=== PATIENT | male | born 1940 ===

== ENCOUNTER 2025-06-09 06:16 | Outpatient (REF) | payer MEDICARE, SELFPAY ==
[2025-06-09 06:09] LABS: MANUAL DIFF FLAG NO
[2025-06-09 06:20] LABS: Hematocrit 40.0 % (42.0-52.0); Hemoglobin 13.6 g/dl (14.0-18.0); Imm Gran Abs Auto 0.04 X10*3/uL (0.00-0.03); Imm Gran Pct Auto 0.6 % (0.0-0.4); Lymphocytes Absolute Auto 1.5 X10*3/uL (1.2-4.9); Mean Corpuscular HGB Conc 34.0 g/dl (31.0-36.0); Mean Corpuscular Hemoglobin 30.0 pg (27.0-33.0); Mean Corpuscular Volume 88.3 fL (80.0-98.0); NRBC Abs Auto 0.000 X10*3/uL (0.0-0.012); NRBC Pct Auto 0.0 /100WBC (0.0-0.2); Platelet Count 197 X10*3/uL (160-400); Red Blood Count 4.53 X10*6/uL (4.60-5.80); White Blood Count 6.3 X10*3/uL (4.8-10.8)
--- OUTSIDE RECORDS SUMMARY | 2025-06-09 06:22 | XMS_ITS | Encounter Summary ---
Author Organization [facility] Address [address] [facility] [address] [place] [address] Phone Care Team Providers Care Kiln Operator Helper Name Role Phone Cristian Garcia MD Primary Care Provider [phone] Cristian Garcia MD Unavailable [phone] Stephen Evans MD Unavailable [phone] Dawn Denise [facility] Primary Care Provider Brittney Covarrubias MD Primary Care Provider [phone] Encounter Details Date Type Department Care Team (Late st Contact Info) Description 07/28/2017 Ancillary [facility] [address] [place] [address] Stephen Evans MD [address] [place] [address] Social History Tobacco Use Types Packs/Day Years Used Date Smoking Tobacco: Never Assessed Sex and Gender Information Value Date Recorded Sex Assigned at Not on file Legal Sex Male 10:13 PM EDT Gender Identity Not on file Sexual Orientation Not on file documented as of this encounter Plan of Treatment Not on file documented as of this encounter Visit Diagnoses Not on filedocumented in this encounter Care Teams Kiln Operator Helper Relationship Specialty Start Date End Date Cristian Garcia MD [address] [place] [address] [email or web address] PCP - General 07/26/17 07/04/20 Dawn Denise CNP [address] [place] [address] [email or web address] PCP - General Family Medicine 07/05/20 12/03/24 Brittney Covarrubias MD [address] [place] [address] [email or web address] PCP - General Family Medicine 12/04/24 Cristian Garcia MD [address] [place] [address] [email or web address] Historical LMR Provider 07/26/17 2 Stephen Evans MD [address] [place] [address] Historical LMR Provider 07/26/17 documented as of this encounter Additional Source Comments The information contained in this document represents components of the legal health record. It is not the complete legal health record.[facility]
--- OUTSIDE RECORDS SUMMARY | 2025-06-09 06:22 | XMS_ITS | Encounter Summary ---
Author Organization [facility] Address [address] [facility] [address] [place] [address] Phone Care Team Providers Care Command Post Craftsman Name Role Phone Cristian Garcia MD Unavailable [phone] Stephen Evans MD Unavailable [phone] Dawn Denise CNP Primary Care Provider Brittney Covarrubias MD Primary Care Provider + [phone] Encounter Details Date Type Department Care Team (Late st Contact Info) Description 03/16/2021 Procedure Pass [facility] [address] [place] [address] Social History Tobacco Use Types Packs/Day Years Used Date Smoking Tobacco: Former Smokeless Tobacco: Never Comments:quit 33 years ago Alcohol Use Standard Drinks/Week Comments Never 0 (1 standard drink = 0.6 oz pur e alcohol) Sex and Gender Information Value Date Recorded Sex Assigned at Not on file Legal Sex Male 10:13 PM EDT Gender Identity Not on file Sexual Orientation Not on file documented as of this encounter Plan of Treatment Not on file documented as of this encounter Visit Diagnoses Not on filedocumented in this encounter Care Teams Command Post Craftsman Relationship Specialty Start Date End Date Dawn Denise CNP [address] [place] [address] PCP - General Family Medicine 07/05/20 12/03/24 Brittney Covarrubias MD [address] [place] [address] [email or web address] PCP - General Family Medicine 12/04/24 Cristian Garcia MD [address] [place] [address] [email or web address] Historical LMR Provider 07/26/17 2 Stephen Evans MD [address] [place] [address] Historical LMR Provider 07/26/17 documented as of this encounter Additional Source Comments The information contained in this document represents components of the legal health record. It is not the complete legal health record.[facility]
--- OUTSIDE RECORDS SUMMARY | 2025-06-09 06:22 | XMS_ITS | Encounter Summary ---
Author Organization [facility] Address [address] [facility] [facility] [address] [place] [address] Phone Care Team Providers Care International Trade Analyst Name Role Phone Cristian Garcia MD Primary Care Provider [phone] Cristian Garcia MD Unavailable [phone] Stephen Evans MD Unavailable [phone] Dawn Denise [facility] Primary Care Provider Brittney Covarrubias MD Primary Care Provider [phone] Reason for Referral * Physical Therapy (Routine) - Closed Specialty Diagnoses / Procedures Referred By Ivanna doty Referred To Contact Physical Therapy Diagnoses Encounter for rehabilitation Balance & Back Pain Procedures Evalute & Treat Cristian Garcia MD Phone: tel: fax: [email or web address] [address] [place] [address] Phone: tel: Referral ID Status Reason Start Date Expiration Date Visits Re quested Visits Authorized [id number] Closed 01/14/2018 10/07/2018 99 99 Encounter Details Date Type Department Care Team (Latest Contact Info) Description 01/14/2018 Transcribe Orders [facility] [address] [place] [address] Cristian Garcia MD [address] [place] [address] [email or web address] Encounter for rehabilitation (Primary Dx) Social History Tobacco Use Types Packs/Day Years Used Date Smoking Tobacco: Never Assessed Sex and Gender Information Value Date Recorded Sex Assigned at Not on file Legal Sex Male 10:13 PM EDT Gender Identity Not on file Sexual Orientation Not on file documented as of this encounter Plan of Treatment Not on file documented as of this encounter Procedures Procedure Name Priority Date/Time Associated Diagnosis Comments AMB REFERRAL TO [facility] PHYSICAL THERAPY Routine 01/15/2018 3:14 PM EDT Encounter for rehabilitation documented in this encounter Results * Ambulatory referral to [facility] Physical Therapy (01/15/2018 3:14 PM EDT) Cristian Garcia MD AMB [facility] REFERRALS Final Result documented in this encounter Visit Diagnoses Diagnosis Encounter for rehabilitation- Primary documented in this encounter Care Teams International Trade Analyst Relationship Specialty Start Date End Date Cristian Garcia MD [address] [place] [address] [email or web address] PCP - General 07/26/17 07/04/20 Dawn Denise CNP [address] [place] [phone] PCP - General Family Medicine 07/05/20 12/03/24 Brittney Covarrubias MD [address] [place] [address] PCP - General Family Medicine 12/04/24 Cristian Garcia MD [address] [place] [address] [email or web address] Historical LMR Provider 07/26/17 2 Stephen Evans MD [address] [place] [address] Historical LMR Provider 07/26/17 documented as of this encounter Additional Source Comments The information contained in this document represents components of the legal health record. It is not the complete legal health record.[facility]
--- OUTSIDE RECORDS SUMMARY | 2025-06-09 06:22 | XMS_ITS | Encounter Summary ---
Author Organization [facility] Address [address] [place] [address] Phone Care Team Providers Care Hat Body Sorter Name Role Phone Cristian Garcia MD Primary Care Provider Cristian Garcia MD Unavailable [phone] Stephen Evans MD Unavailable [phone] Dawn Denise [facility] Primary Care Provider Brittney Covarrubias MD Primary Care Provider [phone] Encounter Details Date Type Department Care Team (Latest Contact Info) Description 07/28/2017 Ancillary [facility] [address] [place] [address] [address] Floor, [address] [place], [place] [phone] Stephen Evans MD [address] [place], [place] [phone] Diagnosis unknown Social History Tobacco Use Types Packs/Day Years Used Date Smoking Tobacco: Never Assessed Sex and Gender Information Value Date Recorded Sex Assigned at Not on file Legal Sex Male 10:13 PM EDT Gender Identity Not on file Sexual Orientation Not on file documented as of this encounter Plan of Treatment Not on file documented as of this encounter Visit Diagnoses Diagnosis Diagnosis unknown documented in this encounter Care Teams Hat Body Sorter Relationship Specialty Start Date End Date Cristian Garcia MD [address] [place] [address] [email or web address] PCP - General 07/26/17 07/04/20 Dawn Denise CNP [address] [place] [address] [email or web address] PCP - General Family Medicine 07/05/20 12/03/24 Brittney Covarrubias MD [address] [place] [address] [email or web address] PCP - General Family Medicine 12/04/24 Cristian Garcia MD [address] [place] [address] [email or web address] Historical LMR Provider 07/26/17 2 Stephen Evans MD [facility] [place] [address] Historical LMR Provider 07/26/17 documented as of this encounter Additional Source Comments The information contained in this document represents components of the legal health record. It is not the complete legal health record.[facility]
--- OUTSIDE RECORDS SUMMARY | 2025-06-09 06:22 | XMS_ITS | Encounter Summary ---
Author Organization [facility] Address [address] [address] [place] [address] Phone Care Team Providers Care Editorial Writer Name Role Phone Cristian Garcia MD Primary Care Provider [phone] Cristian Garcia MD Unavailable [phone] Stephen Evans MD Unavailable [phone] Dawn Denise [facility] Primary Care Provider Brittney Covarrubias MD Primary Care Provider [phone] Reason for Referral * Physical Therapy (Routine) - Closed Specialty Diagnoses / Procedures Referred By Ivanna doty Referred To Contact Physical Therapy Diagnoses Encounter for rehabilitation Radiculopathy Lumbar Region Procedures Treat System, Provider Not In, [facility] [address] [address] Phone: tel: Referral ID Status Reason Start Date Expiration Date Visits Re quested Visits Authorized [id number] Closed 08/06/2017 10/07/2017 99 99 Encounter Details Date Type Department Care Team (Latest Contact Info) Description 08/17/2017 Transcribe Orders [facility] [address] [place] [address] System, Provider Not In, [facility] [address] [address] Encounter for rehabilitation (Primary Dx) Social History Tobacco Use Types Packs/Day Years Used Date Smoking Tobacco: Never Assessed Sex and Gender Information Value Date Recorded Sex Assigned at Not on file Legal Sex Male 10:13 PM EDT Gender Identity Not on file Sexual Orientation Not on file documented as of this encounter Plan of Treatment Scheduled Referrals Name Type Priority Associated Diagnoses Orde r Schedule Ambulatory referral to [facility] Physical Therapy Outpatient Referral Routine Encounter for rehabilitation Ordered: 08/17/2017 documented as of this encounter Visit Diagnoses Diagnosis Encounter for rehabilitation- Primary documented in this encounter Care Teams Editorial Writer Relationship Specialty Start Date End Date Cristian Garcia MD [address] [place] [address] [email or web address] PCP - General 07/26/17 07/04/20 Dawn Denise CNP [address] [place] [address] PCP - General Family Medicine 07/05/20 12/03/24 Brittney Covarrubias MD [address] [place] [address] PCP - General Family Medicine 12/04/24 Cristian Garcia MD [address] [place] [address] [email or web address] Historical LMR Provider 07/26/17 2 Stephen Evans MD [address] [place] [address] Historical LMR Provider 07/26/17 documented as of this encounter Additional Source Comments The information contained in this document represents components of the legal health record. It is not the complete legal health record.[facility]
--- OUTSIDE RECORDS SUMMARY | 2025-06-09 06:22 | XMS_ITS | Encounter Summary ---
Author Organization [facility] Address [address] [place] [address] Phone Care Team Providers Care Oracle Programmer Analyst Name Role Phone Cristian Garcia MD Primary Care Provider [phone] Cristian Garcia MD Unavailable [phone] Stephen Evans MD Unavailable [phone] Dawn Denise [facility] Primary Care Provider Brittney Covarrubias MD Primary Care Provider + [phone] Encounter Details Date Type Department Care Team (Latest Contact Info) Description 02/05/2018 Ancillary Orders [facility] [address] [place] [address] [address], [address] [place] [address] Stephen Evans MD [address] [place] [address] Aortic valve stenosis, etiology of cardiac valve disease unspecified Social History Tobacco Use Types Packs/Day Years Used Date Smoking Tobacco: Never Assessed Sex and Gender Information Value Date Recorded Sex Assigned at Not on file Legal Sex Male 10:13 PM EDT Gender Identity Not on file Sexual Orientation Not on file documented as of this encounter Plan of Treatment Not on file documented as of this encounter Results * TTE COMPREHENSIVE (02/08/2018 8:52 AM EDT) Anatomical Region Laterality Modality Heart Ultrasound us Stephen Evans MD CV ECHO ORDERABLES Final R esult documented in this encounter Visit Diagnoses Diagnosis Aortic valve stenosis, etiology of cardiac valve disease unspecified documented in this encounter Care Teams Oracle Programmer Analyst Relationship Specialty Start Date End Date Cristian Garcia MD [address] [place] [address] [email or web address] PCP - General 07/26/17 07/04/20 Dawn Denise CNP [address] [place] [address] PCP - General Family Medicine 07/05/20 12/03/24 Brittney Covarrubias MD [address] [place] [address] PCP - General Family Medicine 12/04/24 Cristian Garcia MD [address] [place] [address] [email or web address] Historical LMR Provider 07/26/17 Stephen Redmond MD [address] [place] [address] Historical LMR Provider 07/26/17 documented as of this encounter Additional Source Comments The information contained in this document represents components of the legal health record. It is not the complete legal health record.[facility]
--- OUTSIDE RECORDS SUMMARY | 2025-06-09 06:22 | XMS_ITS | Encounter Summary ---
Author Organization [facility] Address [address] [facility] [address] [place] [address] Phone Care Team Providers Care Casting Machine Operator Helper Name Role Phone Cristian Garcia MD Primary Care Provider [phone] Cristian Garcia MD Unavailable [phone] Stephen Evans MD Unavailable [phone] Dawn Denise [facility] Primary Care Provider Brittney Covarrubias MD Primary Care Provider [phone] Reason for Referral * Physical Therapy (Elective) - Closed Specialty Diagnoses / Procedures Referred By Ivanna doty Referred To Contact Physical Therapy Diagnoses Encounter for rehabilitation Balance & Back Pain Procedures Evaluate & Treat Cristian Garcia MD Phone: tel: fax: mailto:[email or web address] [address] [place] [address] Phone: tel: Referral ID Status Reason Start Date Expiration Date Visits Re quested Visits Authorized [id number] Closed 07/26/2018 10/07/2018 88 88 Encounter Details Date Type Department Care Team (Latest Contact Info) Description 07/26/2018 Transcribe Orders [facility] [address] [place] [address] [phone] Cristian Garcia MD [address] [place] [address] [email or web address] Encounter for rehabilitation (Primary Dx) Social History [...] Date/Time Associated Diagnosis Comments AMB REFERRAL TO [facility] PHYSICAL THERAPY Routine 08/06/2018 10:48 AM EDT Encounter for rehabilitation documented in this encounter Results * Ambulatory referral to [facility] Physical Therapy (08/06/2018 10:48 AM EDT) Cristian Garcia MD AMB [facility] REFERRALS Final Result documented in this encounter Visit Diagnoses Diagnosis Encounter for rehabilitation- Primary documented in this encounter Care Teams Casting Machine Operator Helper Relationship Specialty Start Date End Date Cristian Garcia MD [address] [place] [address] [email or web address] PCP - General 07/26/17 07/04/20 Dawn Denise CNP [address] [place] [address] [email or web address] PCP - General Family Medicine 07/05/20 12/03/24 Brittney Covarrubias MD [address] [place] [address] [email or web address] PCP - General Family Medicine 12/04/24 Cristian Garcia MD [address] [place] [address] [email or web address] Historical LMR Provider 07/26/17 2 Stephen Evans MD [address] [place] [address] Historical LMR Provider 07/26/17 documented as of this encounter Additional Source Comments The information contained in this document represents components of the legal health record. It is not the complete legal health record.[facility]
--- OUTSIDE RECORDS SUMMARY | 2025-06-09 06:22 | XMS_ITS | Clinical Summary ---
Author Organization [facility] Address [address] [place] [address] Phone Care Team Providers Care Tow Motor Mechanic Name Role Phone Brittney Covarrubias MD Primary Care Provider [phone] Allergies No known active allergies Medications aspirin 81 MG EC tablet Take 1 tablet by mouth daily. 12/08/2024 Active tamsulosin (FLOMAX) 0.4 mg Cp24 Take 0.8 mg by mouth daily. AM instead of PM per dtr as of 12/12/24 12/08/2024 Active finasteride (PROSCAR) 5 mg tablet Take 1 tablet by mouth daily. 12/08/2024 Active atorvastatin (LIPITOR) 40 MG tablet Take 40 mg by mouth nightly at bedtime. 12/08/2024 Active lisinopril (PRINIVIL,ZESTR IL) 5 MG tablet Take 5 mg by mouth daily. 12/08/2024 Active LORazepam (ATIVAN) 0.5 MG tablet Take 0.25 mg by mouth nightly at bedtime as needed for anxiety. 12/08/2024 Active LORazepam (ATIVAN) 0.5 MG tablet Take 0.5 mg by mouth 2 (two) times a day as needed for anxiety. 12/08/2024 Active melatonin 5 mg Tab Take 10 mg by mouth nightly at bedtime. 12/08/2024 Active theanine 200 mg Take 200 mg by mouth daily. 12/08/2024 Active acetaminophen (TYLENOL EXTRA STRENGTH) 500 MG tablet Take 1,000 mg by mouth nightly at bedtime. 12/08/2024 Active Active Problems Problem Noted Date Diagnosed Date Type 2 diabetes mellitus, wi thout long-term current use of insulin 09/11/2018 SSS (sick sinus syndrome) 02/16/2018 Overview (08/21/2018): Assessment & Plan (02/16/2018 4:43 PM EDT): - Appears to be asymptomatic, but does report some occasional dizziness that resolves quickly upon standing. - EKG today showing sinus rhythm. - No role for pacemaker at this time. -He will report symptoms. He will follow-up with Dr. Rodriguez in 6 months Nonrheumatic aortic valve stenosis 02/16/2018 Overview (08/21/2018): Sinus rhythm with extra systolic beats LV size normal Overall LV systolic function normal with EF 55-60% Diastolic filling pattern normal Sigmoid shaped septum with focal hypertrophy of the basal septum. The remaining wall thickness is mildly increased. Aortic valve moderately calcified Moderate to severe aortic stenosis present Maximum velocity across aortic valve is 3.9 M/ ps Trace mitral regurgitation Compared with the findings of the repair report of 02/22/17 there is a slight increase in velocity across the aortic valve but no significant change. Assessment & Plan (02/16/2018 4:45 PM EDT): - Progressive, latest echo showing moderate to severe aortic stenosis - He appears to be asymptomatic but does report occasional dizziness upon standing that resolves quickly. He will report any worsening symptoms. No chest pain, no significant decrease in his activity tolerance. - Discussed progressive nature of this issue and he is aware that may need a valve replacement in the future. - He will have a repeat echocardiogram in 6 months time. - He will follow-up with Dr. Bernardo in 6 months after echocardiogram is completed Mixed hyperlipidemia 02/16/2018 Assessment & Plan (02/16/2018 4:46 PM EDT): - Continues on pravastatin - Encouraged increased activity as tolerated, however he has been having issues after his back surgery last year. He continues with elevated BMI. - Updated lab results have not been received from [facility], therefore will attempt to obtain. - Due to his diabetes, LDL goal less than 70. Essential hypertension 02/16/2018 Assessment & Plan (02/16/2018 4:48 PM EDT): - Controlled during today's visit - He is currently on lisinopril HCTZ combination pill as prescribed by his PCP - Recently renal labs not available for review at the time of this visit, we will attempt to obtain - Goal BP less than 140/90 for diabetics - He will continue to follow with his PCP and with Dr. Rodriguez Morbid obesity with BMI of 40.0-44.9, adult 02/05 Assessment & Plan (02/16/2018 4:50 PM EDT): - BMI greater than 40 - Exercise is somewhat limited due to recent back surgery and subsequent sequelae with balance issues - He continues to try to increase activity as tolerated Social History Tobacco Use Types Packs/Day Years Used Date Smoking Tobacco: Former Smokeless Tobacco: Never Comments:quit 33 years ago Alcohol Use Standard Drinks/Week Comments Never 0 (1 standard drink = 0.6 oz pur e alcohol) Home Health Assessment: Transportation Answer Date Recorded Lack of Transportation (Medical) No 01/21/2025 Lack of Transportation (Non-Medical) No 01/21/2025 Patient Unable or Declines to Respond No 01/21/2025 Education Answer Date Recorded Are you interested in more education? Not on mirian e 02/01/2023 Are you concerned about learning? Not on file 02/01/2023 No 02/01/2023 No 02/01/2023 Digital Access Answer Date Recorded No 03/03/2023 No 03/03/2023 No 03/03/2023 Reliable internet access at home? Not on file 03/03/2023 Device with a working camera? Not on file Sex and Gender Information Value Date Recorded Sex Assigned at Not on file Legal Sex Male 10:13 PM EDT Gender Identity Not on file Sexual Orientation Not on file Last Filed Vital Signs Vital Sign Reading Time Taken Comments Blood Pressure 110/68 01/21/2025 2:37 PM EDT Pulse 51 01/21/2025 2:37 PM EDT Temperature 36.3 C (97.3 F) 03/16/2021 6:40 AM EDT Respiratory Rate 18 12/12/2024 2:58 PM EST Oxygen Saturation 96% 01/21/2025 2:37 PM EDT Inhaled Oxygen Concentration - - Weight 134.7 kg (297 lb) 12/08/2024 11:41 AM EST Height 188 cm (6' 2 ) 12/08/2024 11:41 AM EST Body Mass Index 38.13 12/08/2024 11:41 AM EST Plan of Treatment Health Maintenance Due Date Last Done Comments Adult Td,Tdap Booster 1940 HEMOGLOBIN A1C 1939 DEPRESSION SCREENING 1951 PNEUMOCOCCAL VACCINES (50+ years) (1 of 2 - PCV) 1958 RSV VACCINE (1 - 1-dose 75+ series) 2014 DIABETIC EYE EXAM 09/11/2018 ZOSTER VACCINES (2 of 2) 12/09/2020 10/14/2020 INFLUENZA VACCINE (#1) 2025 COVID-19 VACCINE (3 - 2024-2 6 season) 2025 12/09/2020, 11/07/2020 BLOOD PRESSURE 07/23/2025 01/21/2025 CREATININE LEVEL 12/02/2025 12/02/2024, 11/26/2024, 11/19/2024 POTASSIUM LEVEL 12/02/2025 12/02/2024, 11/26/2024, 11/19/2024 HEPATITIS A VACCINES Aged Out No long er eligible based on patient's age to complete this topic HIB VACCINES Aged Out No longer eligi ble based on patient's age to complete this topic MENINGOCOCCAL VACCINES (ACWY) Aged Out No longer eligible based on patient's age to complete this topic MENINGOCOCCAL VACCINES (B) Aged Out N o longer eligible based on patient's age to complete this topic Medical Devices Not on file Procedures Procedure Name Priority Date/Time Associated Diagnosis Comments COMPREHENSIVE METABOLIC PANEL Routine 12/02/2024 9:10 AM EST Acute renal failure, unspecified acute renal failure type Other specified diabetes mellitus with other specified complication, unspecified whether regional intermodal truck driver insulin use Essential hypertension, malignant from Last 3 Months or Most Recently Relevant to Health Maintenance Results * (ABNORMAL) Comprehensive metabolic panel (12/02/2024 9:10 AM EST) SODIUM 140 133 - 146 mmol/L [facility] POTASSIUM 4.5 3.3 - 5.1 mmol/L [facility] CHLORIDE 103 96 - 108 mmol/L [facility] CO2 26 21 - 35 mmol/L [facility] BUN 22(H) 6 - 19 mg/dL [facility] CREATININE 1.00 0.5 - 1.5 mg/dL [facility] GLUCOSE 127(H) 70 - 99 mg/dL [facility] ALBUMIN 3.5(L) 3.9 - 4.8 g/dL [facility] TOTAL PROTEIN 6.0(L) 6.5 - 8.0 g/dL [facility] CALCIUM 9.2 8.4 - 10.3 mg/dL [facility] ALKALINE PHOSPHATASE 95 39 - 117 U/L [facility] TOTAL BILIRUBIN 0.6 0.0 - 1.2 mg/dL [facility] AST 14 0 - 37 U/L [facility] ALT 10 0 - 40 U/L [facility] GLOBULIN 2.5 1 - 4.8 g/dL [facility] EGFR 74 >59 mL/min/1.7 3m2 [facility] Comment:Estimated glomerular filtration rate calculated using the CKD-EPI refit equation. ANION GAP 16 10 - 20 mmol/L [facility] 12/02/2024 9:10 AM EST 12/02/2024 9:24 AM EST us Oral Miguel MD LAB BLOOD ORDERABLES Final Resul t [address] [id number] from Last 3 Months or Most Recently Relevant to Health Maintenance Insurance MEDICARE PART A & B MEDICARE HMO REPLACEMENT MEDICARE PART A & B MEDICARE HMO REPLACEMENT MEDICARE PART A & B MEDICARE PART A & B MEDICARE PART A & B [place] MEDIC[place] HMO REPLACEMENT MEDICARE PART A & B MEDICARE PART A & B [place] MEDICARE HMO REPLACEMENT MEDICARE PART A & B MEDICARE HMO REPLACEMENT Member Subscriber Plan / Payer (Ef fective 2024-) Name:Augustus Nur Relation to Subscriber:Self Name:Augustus Nur Payer ID:Not on file Type:Medicare Address: [place] [id number] MEDICARE PART A & B MEDICARE HMO REPLACEMENT Advance Directives For more information, please contact: [phone] (9AM - 5PM [facility], Sunday-Sunday) * Full Code (Latest Code Status on File) Date Activated Date Inactivated Comments 03/16/2021 6:18 AM Question Answer Comments Code Status Confirmed With: Other (specify below ) Code Discussion Comments: Transcribed from order Care Teams Tow Motor Mechanic Relationship Specialty Start Date End Date Brittney Covarrubias MD [address] [place] [phone] [email or web address] PCP - General Family Medicine 12/04/24 Additional Source Comments The information contained in this document represents components of the legal health record. It is not the complete legal health record.[facility]
--- OUTSIDE RECORDS SUMMARY | 2025-06-09 06:22 | XMS_ITS | Encounter Summary ---
Author Organization [facility] Address [address] [facility] [address] [place] [address] Phone Care Team Providers Care Sueding Machine Tender Name Role Phone Cristian Garcia MD Primary Care Provider [phone] Cristian Garcia MD Unavailable [phone] Stephen Evans MD Unavailable [phone] Dawn Denise [facility] Primary Care Provider Brittney Covarrubias MD Primary Care Provider [phone] Reason for Referral * Physical Therapy (Routine) - Closed Specialty Diagnoses / Procedures Referred By Ivanna doty Referred To Contact Physical Therapy Diagnoses Encounter for rehabilitation Unsteady Gait Procedures Evaluate & Treat Mark Brandt MD Phone: tel: fax: [email or web address] [facility] [address] [place] [address] Phone: tel: Referral ID Status Reason Start Date Expiration Date Visits Re quested Visits Authorized [id number] Closed 03/21/2019 10/07/2019 99 99 Encounter Details Date Type Department Care Team (Latest Contact Info) Description 03/17/2019 Transcribe Orders [facility] Rehabilitation Services [address] [place] [address] Mark Brandt MD [address] [place] [phone] [email or web address] Encounter for rehabilitation (Primary Dx) Social History [...] Date/Time Associated Diagnosis Comments AMB REFERRAL TO [facility] PHYSICAL THERAPY Routine 03/21/2019 1:11 PM EDT Encounter for rehabilitation documented in this encounter Results * Ambulatory referral to [facility] Physical Therapy (03/21/2019 1:11 PM EDT) us Mark Brandt MD AMB [facility] REFERRALS Final Resul t documented in this encounter Visit Diagnoses Diagnosis Encounter for rehabilitation- Primary documented in this encounter Care Teams Sueding Machine Tender Relationship Specialty Start Date End Date Cristian Garcia MD [address] [place] [address] [email or web address] PCP - General 07/26/17 07/04/20 Dwan Denise CNP [address] [place] [address] [email or web address] PCP - General Family Medicine 07/05/20 12/03/24 Brittney Covarrubias MD [address] [place] [address] [email or web address] PCP - General Family Medicine 12/04/24 Cristian Garcia MD [address] [place] [address] [email or web address] Historical LMR Provider 07/26/17 2 Stephen Evans MD [address] [place] [address] Historical LMR Provider 07/26/17 documented as of this encounter Additional Source Comments The information contained in this document represents components of the legal health record. It is not the complete legal health record.[facility]
[2025-06-09 06:50] LABS: Anion Gap 14 (12-20); Blood Urea Nitrogen 14 mg/dL (9-16); Calcium 9.0 mg/dL (8.4-10.2); Carbon Dioxide 25 mmol/L (22-29); Chloride 104 mmol/L (96-108); Estimated Glomerular Filt Rate > 60; Potassium 3.8 mmol/L (3.3-5.1); Sodium 139 mmol/L (135-145)
== END 2025-06-09 06:17 | disposition home or self-care (01) ==
LOC: HO.MMNH1L 06:16
PROVIDERS: Visit Provider Physician Assistant Medical
DX: I10 Essential (primary) hypertension (principal); N39.0 Urinary tract infection, site not specified; E78.5 Hyperlipidemia, unspecified
CPT/HCPCS: 36415; 80048; 85025

== ENCOUNTER 2025-06-11 06:24 | Outpatient (REF) | payer MEDICARE, SELFPAY ==
[2025-06-11 06:28] LABS: MANUAL DIFF FLAG NO
--- OUTSIDE RECORDS SUMMARY | 2025-06-11 06:28 | XMS_ITS | Encounter Summary ---
Author Organization [facility] Address [address] [employer] [facility] [address] [place] [address] Phone Care Team Providers Care Anvilsmith Name Role Phone Cristian Garcia MD Unavailable [phone] Stephen Evans MD Unavailable [phone] Dawn Denise CNP Primary Care Provider Brittney Covarrubias MD Primary Care Provider + [phone] Encounter Details Date Type Department Care Team (Late st Contact Info) Description 03/16/2021 Procedure Pass [facility] Cardiovascular And Interventional Radiology [address] [place] [address] Social History Tobacco Use Types Packs/Day Years [...] on filedocumented in this encounter Care Teams Anvilsmith Relationship Specialty Start Date End Date Dawn Denise CNP [address] [place] [address] PCP - General Family Medicine 07/05/20 12/03/24 Brittney Covarrubias MD [address] [place] [address] [email or web address] PCP - General Family Medicine 12/04/24 Cristian Garcia MD [address] [place] [address] [email or web address] Historical LMR Provider 07/26/17 2 Stephen Evans MD [address] [place] [address] Historical LMR Provider 07/26/17 documented as of this encounter Additional Source Comments The information contained in this document represents components of the legal health record. It is not the complete legal health record.[facility]
--- OUTSIDE RECORDS SUMMARY | 2025-06-11 06:29 | XMS_ITS | Encounter Summary ---
Author Organization [facility] Address [address] [facility] [address] [place] [address] Phone Care Team Providers Care Quality Management Nurse Name Role Phone Cristian Garcia MD Primary Care Provider [phone] Cristian Garcia MD Unavailable [phone] Stephen Evans MD Unavailable [phone] Dawn Denise [facility] Primary Care Provider Brittney Covarrubias MD Primary Care Provider [phone] Reason for Referral * Physical Therapy (Routine) - Closed Specialty Diagnoses / Procedures Referred By Ivanna doty Referred To Contact Physical Therapy Diagnoses Encounter for rehabilitation Radiculopathy Lumbar Region Procedures Treat System, Provider Not In, [facility] [address] [address] Phone: tel: Referral ID Status Reason Start Date Expiration Date Visits Re quested Visits Authorized [id number] Closed 08/06/2017 10/07/2017 99 99 Encounter Details Date Type Department Care Team (Latest Contact Info) Description 08/17/2017 Transcribe Orders [facility] Rehabilitation Services [address] [place] [address] System, Provider Not In, [facility] [employer] [address] [address] Encounter for rehabilitation (Primary Dx) Social History [...] Diagnoses Orde r Schedule Ambulatory referral to [facility] Physical Therapy Outpatient Referral Routine Encounter for rehabilitation Ordered: 08/17/2017 documented as of this encounter Visit Diagnoses Diagnosis Encounter for rehabilitation- Primary documented in this encounter Care Teams Quality Management Nurse Relationship Specialty Start Date End Date Cristian Garcia MD [address] [place] [address] [email or web address] PCP - General 07/26/17 07/04/20 Dawn Denise CNP [address] [place] [phone] PCP - General Family Medicine 07/05/20 12/03/24 Brittney Covarrubias MD [address] [place] [address] PCP - General Family Medicine 12/04/24 Cristian Garcia MD [address] [place] [address] [email or web address] Historical LMR Provider 07/26/17 2 Stephen Evans MD [address] [place] [address] Historical LMR Provider 07/26/17 documented as of this encounter Additional Source Comments The information contained in this document represents components of the legal health record. It is not the complete legal health record.[facility]
--- OUTSIDE RECORDS SUMMARY | 2025-06-11 06:29 | XMS_ITS | Encounter Summary ---
Author Organization [facility] Address [email or web address] [facility] [address] [place] [address] Phone Care Team Providers Care Pediatric Hospitalist Name Role Phone Cristian Garcia MD Primary Care Provider [phone] Cristian Garcia MD Unavailable [phone] Stephen Evans MD Unavailable [phone] Dawn Denise [facility] Primary Care Provider Brittney Covarrubias MD Primary Care Provider [phone] Reason for Referral * Physical Therapy (Routine) - Closed Specialty Diagnoses / Procedures Referred By Ivanna doty Referred To Contact Physical Therapy Diagnoses Encounter for rehabilitation Balance & Back Pain Procedures Evalute & Treat Cristian Garcia MD Phone: tel: fax: mailto:[email or web address] [facility] [address] [place] [address] Phone: tel: Referral ID Status Reason Start Date Expiration Date Visits Re quested Visits Authorized [id number] Closed 01/14/2018 10/07/2018 99 99 Encounter Details Date Type Department Care Team (Latest Contact Info) Description 01/14/2018 Transcribe Orders [facility] Rehabilitation Services [address] [place] [address] Cristian Garcia MD [address] [place] [phone] [email or web address] Encounter for rehabilitation (Primary Dx) Social History [...] Date/Time Associated Diagnosis Comments AMB REFERRAL TO [facility] PHYSICAL THERAPY Routine 01/15/2018 3:14 PM EDT Encounter for rehabilitation documented in this encounter Results * Ambulatory referral to [facility] Physical Therapy (01/15/2018 3:14 PM EDT) Cristian Garcia MD AMB [facility] REFERRALS Final Result documented in this encounter Visit Diagnoses Diagnosis Encounter for rehabilitation- Primary documented in this encounter Care Teams Pediatric Hospitalist Relationship Specialty Start Date End Date Cristian Garcia MD [address] [place] [phone] [email or web address] PCP - General 07/26/17 07/04/20 Dawn Denise CNP [address] [place] [address] PCP - General Family Medicine 07/05/20 12/03/24 Brittney Covarrubias MD [address] [place] [phone] PCP - General Family Medicine 12/04/24 Cristian Garcia MD [address] [place] [phone] [email or web address] Historical LMR Provider 07/26/17 2 Stephen Evans MD [address] [place] [address] Historical LMR Provider 07/26/17 documented as of this encounter Additional Source Comments The information contained in this document represents components of the legal health record. It is not the complete legal health record.[facility]
--- OUTSIDE RECORDS SUMMARY | 2025-06-11 06:29 | XMS_ITS | Encounter Summary ---
Author Organization [facility] Address [address] [facility] [address] [place] [address] Phone Care Team Providers Care Administrative Library Assistant Name Role Phone Cristian Garcia MD Primary Care Provider [phone] Cristian Garcia MD Unavailable [phone] Stephen Evans MD Unavailable [phone] Dawn Denise [facility] Primary Care Provider Brittney Covarrubias MD Primary Care Provider [phone] Reason for Referral * Physical Therapy (Elective) - Closed Specialty Diagnoses / Procedures Referred By Ivanna doty Referred To Contact Physical Therapy Diagnoses Encounter for rehabilitation Balance & Back Pain Procedures Evaluate & Treat Cristian Garcia MD Phone: tel: fax: mailto:[email or web address] [address] [place] [address] Phone: tel: Referral ID Status Reason Start Date Expiration Date Visits Re quested Visits Authorized [id number] Closed 07/26/2018 10/07/2018 88 88 Encounter Details Date Type Department Care Team (Latest Contact Info) Description 07/26/2018 Transcribe Orders [facility] Rehabilitation Services [address] [place] [address] [phone] Cristian Garcia MD [address] [place] [phone] [email or web address] Encounter for rehabilitation (Primary Dx) Social History [...] Date/Time Associated Diagnosis Comments AMB REFERRAL TO [facility] PHYSICAL THERAPY Routine 08/06/2018 10:48 AM EDT Encounter for rehabilitation documented in this encounter Results * Ambulatory referral to [facility] Physical Therapy (08/06/2018 10:48 AM EDT) Cristian Garcia MD AMB [facility] REFERR[facility] Final Result documented in this encounter Visit Diagnoses Diagnosis Encounter for rehabilitation- Primary documented in this encounter Care Teams Administrative Library Assistant Relationship Specialty Start Date End Date Cristian Garcia MD [address] [place] [phone] [email or web address] PCP - General 07/26/17 07/04/20 Dawn Denise CNP [address] [place] [address] PCP - General Family Medicine 07/05/20 12/03/24 Brittney Covarrubias MD [address] [place] [address] PCP - General Family Medicine 12/04/24 Cristian Garcia MD [address] [place] [address] [email or web address] Historical LMR Provider 07/26/17 2 Stephen Evans MD [address] [place] [address] Historical LMR Provider 07/26/17 documented as of this encounter Additional Source Comments The information contained in this document represents components of the legal health record. It is not the complete legal health record.[facility]
--- OUTSIDE RECORDS SUMMARY | 2025-06-11 06:29 | XMS_ITS | Encounter Summary ---
Author Organization [facility] Address [address] [employer] [facility] [address] [place] [address] Phone Care Team Providers Care Living Nurse Name Role Phone Cristian Garcia MD Primary Care Provider [phone] Cristian Garcia MD Unavailable [phone] Stephen Evans MD Unavailable [phone] Dawn Denise [facility] Primary Care Provider Brittney Covarrubias MD Primary Care Provider [phone] Reason for Referral * Physical Therapy (Routine) - Closed Specialty Diagnoses / Procedures Referred By Ivanna doty Referred To Contact Physical Therapy Diagnoses Encounter for rehabilitation Unsteady Gait Procedures Evaluate & Treat Mark Brandt MD Phone: tel: fax: [email or web address] [facility] [address] [place] [address] Phone: tel: Referral ID Status Reason Start Date Expiration Date Visits Re quested Visits Authorized [id number] Closed 03/21/2019 10/07/2019 99 99 Encounter Details Date Type Department Care Team (Latest Contact Info) Description 03/17/2019 Transcribe Orders [facility] [address] [place] [address] Mark Brandt MD [address] [place] [address] [email or web address] Encounter for rehabilitation (Primary Dx) Social [...] Date/Time Associated Diagnosis Comments AMB REFERRAL TO [facility] PHYSICAL THERAPY Routine 03/21/2019 1:11 PM EDT Encounter for rehabilitation documented in this encounter Results * Ambulatory referral to [facility] Physical Therapy (03/21/2019 1:11 PM EDT) us Mark Brandt MD AMB [facility] REFERRALS Final Resul t documented in this encounter Visit Diagnoses Diagnosis Encounter for rehabilitation- Primary documented in this encounter Care Teams Living Nurse Relationship Specialty Start Date End Date Cristian Garcia MD [address] [place] [address] [email or web address] PCP - General 07/26/17 07/04/20 Dawn Denise CNP [address] [place] [address] PCP - General Family Medicine 07/05/20 12/03/24 Brittney Covarrubias MD [address] [place] [address] PCP - General Family Medicine 12/04/24 Cristian Garcia MD [address] [place] [address] [email or web address] Historical LMR Provider 07/26/17 2 Stephen Evans MD [address] [place] [address] Historical LMR Provider 07/26/17 documented as of this encounter Additional Source Comments The information contained in this document represents components of the legal health record. It is not the complete legal health record.[facility]
--- OUTSIDE RECORDS SUMMARY | 2025-06-11 06:29 | XMS_ITS | Clinical Summary ---
Author Organization [facility] Address [address] [place] [address] Phone Care Team Providers Care Dealmaker Name Role Phone Brittney Covarrubias MD Primary Care Provider [phone] Allergies No known active allergies Medications aspirin [...] lab results have not been received from [employer] [facility], therefore will attempt to obtain. - Due [...] mellitus with other specified complication, unspecified whether middle or intermediate school principal insulin use Essential hypertension, malignant from Last 3 Months or Most Recently Relevant to Health Maintenance Results * (ABNORMAL) Comprehensive metabolic panel (12/02/2024 9:10 AM EST) SODIUM 140 133 - 146 mmol/L [facility] POTASSIUM 4.5 3.3 - 5.1 mmol/L [facility] CHLORIDE 103 96 - 108 mmol/L [facility] CO2 26 21 - 35 mmol/L [facility] BUN 22(H) 6 - 19 mg/dL [facility] CREATININE 1.00 0.5 - 1.5 mg/dL [facility] GLUCOSE 127(H) 70 - 99 mg/dL [facility] ALBUMIN 3.5(L) 3.9 - 4.8 g/dL [facility] TOTAL PROTEIN 6.0(L) 6.5 - 8.0 g/dL [facility] CALCIUM 9.2 8.4 - 10.3 mg/dL [facility] ALKALINE PHOSPHATASE 95 39 - 117 U/L [facility] TOTAL BILIRUBIN 0.6 0.0 - 1.2 mg/dL [facility] AST 14 0 - 37 U/L [facility] ALT 10 0 - 40 U/L [facility] GLOBULIN 2.5 1 - 4.8 g/dL [facility] EGFR 74 >59 mL/min/1.7 3m2 [facility] Comment:Estimated glomerular filtration rate calculated using the CKD-EPI refit equation. ANION GAP 16 10 - 20 mmol/L [facility] 12/02/2024 9:10 AM EST 12/02/2024 9:24 AM EST us Oral Miguel MD LAB BLOOD ORDERABLES Final Resul t [address] [address] from Last 3 Months or Most Recently [...] Nur Payer ID:Not on file Type:Medicare Address: [place] [id number] MEDICARE PART A & B MEDICARE HMO REPLACEMENT Advance Directives For more information, please contact: [phone] (9AM - 5PM [facility], Sunday-Sunday) * Full Code (Latest Code Status on File) Date Activated Date Inactivated Comments 03/16/2021 6:18 AM Question Answer Comments Code Status Confirmed With: Other (specify below ) Code Discussion Comments: Transcribed from order Care Teams Dealmaker Relationship Specialty Start Date End Date Brittney Covarrubias MD [address] [place] [address] [email or web address] PCP - General Family Medicine 12/04/24 Additional Source Comments The information contained in this document represents components of the legal health record. It is not the complete legal health record.[facility]
--- OUTSIDE RECORDS SUMMARY | 2025-06-11 06:29 | XMS_ITS | Encounter Summary ---
Author Organization [facility] Address [address] [place] [address] Phone Care Team Providers Care Desk Top Publisher Name Role Phone Cristian Garcia MD Primary Care Provider [phone] Cristian Garcia MD Unavailable [phone] Stephen Evans MD Unavailable [phone] Dawn Denise [facility] Primary Care Provider Brittney Covarrubias MD Primary Care Provider + [phone] Encounter Details Date Type Department Care Team (Latest Contact Info) Description 02/05/2018 Ancillary Orders [facility] [address] [place] [address] 3rd Floor, [address] [place] [address] Stephen Evans MD [address] [place] [address] Aortic valve stenosis, etiology of cardiac valve [...] unspecified documented in this encounter Care Teams Desk Top Publisher Relationship Specialty Start Date End Date Cristian Garcia MD [address] [place] [address] [email or web address] PCP - General 07/26/17 07/04/20 Dawn Denise CNP [address] [place] [address] PCP - General Family Medicine 07/05/20 12/03/24 Brittney Covarrubias MD [address] [place] [address] PCP - General Family Medicine 12/04/24 Cristian Garcia MD [address] [place] [address] [email or web address] Historical LMR Provider 07/26/17 Stephen Redmond MD [address] [place] [address] Historical LMR Provider 07/26/17 documented as of this encounter Additional Source Comments The information contained in this document represents components of the legal health record. It is not the complete legal health record.[facility]
--- OUTSIDE RECORDS SUMMARY | 2025-06-11 06:29 | XMS_ITS | Encounter Summary ---
Author Organization [facility] Address [address] [place] [address] Phone Care Team Providers Care Records Section Supervisor Name Role Phone Cristian Garcia MD Primary Care Provider Cristian Garcia MD Unavailable [phone] Stephen Evans MD Unavailable [phone] Dawn Denise [facility] Primary Care Provider Brittney Covarrubias MD Primary Care Provider [phone] Encounter Details Date Type Department Care Team (Latest Contact Info) Description 07/28/2017 [facility] [address] [place] [address] 3rd Floor, [address] [place] [address] Stephen Evans MD [address] [place], [place] [phone] Diagnosis unknown Social History Tobacco Use Types [...] unknown documented in this encounter Care Teams Records Section Supervisor Relationship Specialty Start Date End Date Cristian Garcia MD [address] [place] [address] [email or web address] PCP - General 07/26/17 07/04/20 Dawn Denise CNP [address] [place] [address] [email or web address] PCP - General Family Medicine 07/05/20 12/03/24 Brittney Covarrubias MD [address] [place] [address] [email or web address] PCP - General Family Medicine 12/04/24 Cristian Garcia MD [address] [place] [address] [email or web address] Historical LMR Provider 07/26/17 2 Stephen Evans MD [facility] [place] [address] Historical LMR Provider 07/26/17 documented as of this encounter Additional Source Comments The information contained in this document represents components of the legal health record. It is not the complete legal health record.[facility]
--- OUTSIDE RECORDS SUMMARY | 2025-06-11 06:29 | XMS_ITS | Encounter Summary ---
Author Organization [facility] Address [address] [employer] [facility] [address] [place] [address] Phone Care Team Providers Care Locum Tenens Name Role Phone Cristian Garcia MD Primary Care Provider [phone] Cristian Garcia MD Unavailable [phone] Stephen Evans MD Unavailable Dawn Denise [facility] Primary Care Provider Brittney Covarrubias MD Primary Care Provider [phone] Encounter Details Date Type Department Care Team (Late st Contact Info) Description 07/28/2017 Ancillary [facility] [address] [place] [address] Stephen Evans MD [address] [place] [address] Social History Tobacco Use Types Packs/Day Years [...] on filedocumented in this encounter Care Teams Locum Tenens Relationship Specialty Start Date End Date Cristian Garcia MD [address] [place] [address] [email or web address] PCP - General 07/26/17 07/04/20 Dawn Denise CNP [address] [place] [address] [email or web address] PCP - General Family Medicine 07/05/20 12/03/24 Brittney Covarrubias MD [address] [place] [address] [email or web address] PCP - General Family Medicine 12/04/24 Cristian Garcia MD [address] [place] [address] [email or web address] Historical LMR Provider 07/26/17 2 Stephen Evans MD [address] [place] [address] Historical LMR Provider 07/26/17 documented as of this encounter Additional Source Comments The information contained in this document represents components of the legal health record. It is not the complete legal health record.[facility]
[2025-06-11 07:01] LABS: Hematocrit 39.1 % (42.0-52.0); Hemoglobin 13.4 g/dl (14.0-18.0); Imm Gran Abs Auto 0.04 X10*3/uL (0.00-0.03); Imm Gran Pct Auto 0.6 % (0.0-0.4); Lymphocytes Absolute Auto 1.5 X10*3/uL (1.2-4.9); Mean Corpuscular HGB Conc 34.3 g/dl (31.0-36.0); Mean Corpuscular Hemoglobin 29.7 pg (27.0-33.0); Mean Corpuscular Volume 86.7 fL (80.0-98.0); NRBC Abs Auto 0.000 X10*3/uL (0.0-0.012); NRBC Pct Auto 0.0 /100WBC (0.0-0.2); Platelet Count 208 X10*3/uL (160-400); Red Blood Count 4.51 X10*6/uL (4.60-5.80); White Blood Count 6.4 X10*3/uL (4.8-10.8)
[2025-06-11 07:17] LABS: Alanine Aminotransferase 14 U/L (0-40); Albumin Level 3.8 g/dL (3.5-5.0); Alkaline Phosphatase 75 U/L (39-117); Anion Gap 12 (12-20); Aspartate Amino Transferase 22 U/L (5-37); Blood Urea Nitrogen 15 mg/dL (9-16); Calcium 9.1 mg/dL (8.4-10.2); Carbon Dioxide 29 mmol/L (22-29); Chloride 100 mmol/L (96-108); Estimated Glomerular Filt Rate > 60; Potassium 4.0 mmol/L (3.3-5.1); Sodium 137 mmol/L (135-145); Total Protein 6.2 g/dL (6.5-8.0)
[2025-06-11 07:20] LABS: Hemoglobin A1C 145.3538 umol/L; Total Hemoglobin (HGBA1C) 3433.0429 umol/L
== END 2025-06-11 06:25 | disposition home or self-care (01) ==
LOC: HO.MMNH1L 06:24
PROVIDERS: Visit Provider Student in an Organized Health Care Education/Training Program
DX: I10 Essential (primary) hypertension (principal); E11.9 Type 2 diabetes mellitus without complications; Z91.81 History of falling
CPT/HCPCS: 36415; 80053; 83036; 85025

== ENCOUNTER 2025-06-15 06:02 | Outpatient (REF) | payer MEDICARE, SELFPAY ==
[2025-06-15 05:57] LABS: MANUAL DIFF FLAG NO
--- OUTSIDE RECORDS SUMMARY | 2025-06-15 06:07 | XMS_ITS | Encounter Summary ---
Author Organization [facility] Address [address] [facility] [place] [address] [place] [address] Phone Care Team Providers Care Paver Layer Name Role Phone Cristian Garcia MD Unavailable [phone] Stephen Evans MD Unavailable [phone] Dawn Denise CNP Primary Care Provider Brittney Covarrubias MD Primary Care Provider + [phone] Encounter Details Date Type Department Care Team (Late st Contact Info) Description 03/16/2021 Procedure Pass [facility]iology [address] [place] [address] Social History Tobacco Use Types Packs/Day Years [...] on filedocumented in this encounter Care Teams Paver Layer Relationship Specialty Start Date End Date Dawn Denise CNP [address] [place] [address] PCP - General Family Medicine 07/05/20 12/03/24 Brittney Covarrubias MD [address] [place] [address] [email or web address] PCP - General Family Medicine 12/04/24 Cristian Garcia MD [address] [place] [address] [email or web address] Historical LMR Provider 07/26/17 2 Stephen Evans MD [address] [place] [address] Historical LMR Provider 07/26/17 documented as of this encounter Additional Source Comments The information contained in this document represents components of the legal health record. It is not the complete legal health record.[facility]
--- OUTSIDE RECORDS SUMMARY | 2025-06-15 06:07 | XMS_ITS | Encounter Summary ---
Author Organization [facility] Address [address] [facility] [address] [place] [address] Phone Care Team Providers Care Web Site Specialist Name Role Phone Cristian Garcia MD Primary Care Provider [phone] Cristian Garcia MD Unavailable [phone] Stephen Evans MD Unavailable [phone] Dawn Denise [facility] Primary Care Provider Brittney Covarrubias MD Primary Care Provider [phone] Reason for Referral * Physical Therapy (Routine) - Closed Specialty Diagnoses / Procedures Referred By Ivanna doty Referred To Contact Physical Therapy Diagnoses Encounter for rehabilitation Radiculopathy Lumbar Region Procedures Treat System, Provider Not In, [facility] [employer] [address] [address] Phone: tel: Referral ID Status Reason Start Date Expiration Date Visits Re quested Visits Authorized [id number] Closed 08/06/2017 10/07/2017 99 99 Encounter Details Date Type Department Care Team (Latest Contact Info) Description 08/17/2017 Transcribe Orders [facility] [address] [place] [address] System, Provider Not In, [employer] [address] [address] Encounter for rehabilitation (Primary Dx) Social History [...] Diagnoses Orde r Schedule Ambulatory referral to [facility] Physical Therapy Outpatient Referral Routine Encounter for rehabilitation Ordered: 08/17/2017 documented as of this encounter Visit Diagnoses Diagnosis Encounter for rehabilitation- Primary documented in this encounter Care Teams Web Site Specialist Relationship Specialty Start Date End Date Cristian Garcia MD [address] [place] [address] [email or web address] PCP - General 07/26/17 07/04/20 Dawn Denise CNP [address] [place] [address] PCP - General Family Medicine 07/05/20 12/03/24 Brittney Covarrubias MD [address] [place] [address] PCP - General Family Medicine 12/04/24 Cristian Garcia MD [address] [place] [address] [email or web address] Historical LMR Provider 07/26/17 2 Stephen Evans MD [address] [place] [address] Historical LMR Provider 07/26/17 documented as of this encounter Additional Source Comments The information contained in this document represents components of the legal health record. It is not the complete legal health record.[facility]
--- OUTSIDE RECORDS SUMMARY | 2025-06-15 06:07 | XMS_ITS | Encounter Summary ---
Author Organization [facility] Address [address] [place] [address] Phone Care Team Providers Care Physical Therapy Technician Name Role Phone Cristian Garcia MD Primary Care Provider [phone] Cristian Garcia MD Unavailable [phone] Stephen Evans MD Unavailable [phone] Dawn Denise [facility] Primary Care Provider Brittney Covarrubias MD Primary Care Provider + [phone] Encounter Details Date Type Department Care Team (Latest Contact Info) Description 02/05/2018 Ancillary Orders [facility] [address] [place] [address] 3rd Floor, [address] [place] [address] Stephen Evans MD [address] [place] [address] Aortic valve stenosis, etiology of cardiac valve [...] unspecified documented in this encounter Care Teams Physical Therapy Technician Relationship Specialty Start Date End Date Cristian Garcia MD [address] [place] [address] [email or web address] PCP - General 07/26/17 07/04/20 Dawn Denise CNP [address] [place] [address] PCP - General Family Medicine 07/05/20 12/03/24 Brittney Covarrubias MD [address] [place] [address] PCP - General Family Medicine 12/04/24 Cristian Garcia MD [address] [place] [address] [email or web address] Historical LMR Provider 07/26/17 Stephen Redmond MD [address] [place] [address] Historical LMR Provider 07/26/17 documented as of this encounter Additional Source Comments The information contained in this document represents components of the legal health record. It is not the complete legal health record.[facility]
--- OUTSIDE RECORDS SUMMARY | 2025-06-15 06:07 | XMS_ITS | Encounter Summary ---
Author Organization [facility] Address [address] [employer] [facility] [address] [place] [address] Phone Care Team Providers Care Dredge Or Barge Shore Hand Name Role Phone Cristian Garcia MD Primary Care Provider [phone] Cristian Garcia MD Unavailable [phone] Stephen Evans MD Unavailable [phone] Dawn Denise [facility] Primary Care Provider Brittney Covarrubias MD Primary Care Provider [phone] Reason for Referral * Physical Therapy (Routine) - Closed Specialty Diagnoses / Procedures Referred By Ivanna doty Referred To Contact Physical Therapy Diagnoses Encounter for rehabilitation Balance & Back Pain Procedures Evalute & Treat Cristian Garcia MD Phone: tel: fax: mailto:[email or web address] [address] [place] [address] Phone: tel: Referral ID Status Reason Start Date Expiration Date Visits Re quested Visits Authorized [id number] Closed 01/14/2018 10/07/2018 99 99 Encounter Details Date Type Department Care Team (Latest Contact Info) Description 01/14/2018 Transcribe Orders [facility] [address] [place] [address] Cristian Garcia MD [address] [place] [address] [email or web address] Encounter for rehabilitation (Primary Dx) Social History [...] Date/Time Associated Diagnosis Comments AMB REFERRAL TO [facility] PHYSICAL THERAPY Routine 01/15/2018 3:14 PM EDT Encounter for rehabilitation documented in this encounter Results * Ambulatory referral to [facility] Physical Therapy (01/15/2018 3:14 PM EDT) Cristian Garcia MD AMB [facility] REFERRALS Final Result documented in this encounter Visit Diagnoses Diagnosis Encounter for rehabilitation- Primary documented in this encounter Care Teams Dredge Or Barge Shore Hand Relationship Specialty Start Date End Date Cristian Garcia MD [address] [place] [address] [email or web address] PCP - General 07/26/17 07/04/20 Dawn Denise CNP [address] [place] [address] [email or web address] PCP - General Family Medicine 07/05/20 12/03/24 Brittney Covarrubias MD [address] [place] [address] [email or web address] PCP - General Family Medicine 12/04/24 Cristian Garcia MD [address] [place] [address] [email or web address] Historical LMR Provider 07/26/17 2 Stephen Evans MD [address] [place] [address] Historical LMR Provider 07/26/17 documented as of this encounter Additional Source Comments The information contained in this document represents components of the legal health record. It is not the complete legal health record.[facility]
--- OUTSIDE RECORDS SUMMARY | 2025-06-15 06:07 | XMS_ITS | Encounter Summary ---
Author Organization [facility] Address [address] [place] [address] Phone Care Team Providers Care L D Rn Name Role Phone Cristian Garcia MD Primary Care Provider Cristian Garcia MD Unavailable [phone] Stephen Evans MD Unavailable [phone] Dawn Denise [facility] Primary Care Provider Brittney Covarrubias MD Primary Care Provider [phone] Encounter Details Date Type Department Care Team (Latest Contact Info) Description 07/28/2017 Ancillary [facility] [address] [place] [address] 3rd Floor, [address] [place], [place] [phone] Stephen Evans MD [address] [place], [place] [phone] Diagnosis unknown Social History Tobacco Use Types [...] unknown documented in this encounter Care Teams L D Rn Relationship Specialty Start Date End Date Cristian Garcia MD [address] [place] [address] [email or web address] PCP - General 07/26/17 07/04/20 Dawn Denise CNP [address] [place] [address] [email or web address] PCP - General Family Medicine 07/05/20 12/03/24 Brittney Covarrubias MD [address] [place] [address] [email or web address] PCP - General Family Medicine 12/04/24 Cristian Garcia MD [address] [place] [address] [email or web address] Historical LMR Provider 07/26/17 2 Stephen Evans MD [facility] [place] [address] Historical LMR Provider 07/26/17 documented as of this encounter Additional Source Comments The information contained in this document represents components of the legal health record. It is not the complete legal health record.[facility]
--- OUTSIDE RECORDS SUMMARY | 2025-06-15 06:07 | XMS_ITS | Encounter Summary ---
Author Organization [facility] Address [address] [employer] [facility] [address] [place] [address] Phone Care Team Providers Care Machine Egg Washer Name Role Phone Cristian Garcia MD Primary Care Provider [phone] Cristian Garcia MD Unavailable [phone] Stephen Evans MD Unavailable [phone] Dawn Denise [facility] Primary Care Provider Brittney Covarrubias MD Primary Care Provider [phone] Reason for Referral * Physical Therapy (Routine) - Closed Specialty Diagnoses / Procedures Referred By Ivanna doty Referred To Contact Physical Therapy Diagnoses Encounter for rehabilitation Unsteady Gait Procedures Evaluate & Treat Mark Brandt MD Phone: tel: fax: mailto:[email or web address] [address] [place] [address] Phone: tel: Referral ID Status Reason Start Date Expiration Date Visits Re quested Visits Authorized [id number] Closed 03/21/2019 10/07/2019 99 99 Encounter Details Date Type Department Care Team (Latest Contact Info) Description 03/17/2019 Transcribe Orders [facility] [address] [place] [address] Mark Brandt MD [address] [place] [address] [email or web address] Encounter for rehabilitation (Primary Dx) Social [...] TO [facility] PHYSICAL THERAPY Routine 03/21/2019 1:11 PM EDT Encounter for rehabilitation documented in this encounter Results * Ambulatory referral to [facility] Physical Therapy (03/21/2019 1:11 PM EDT) us Mark Brandt MD AMB [facility] REFERRALS Final Resul t documented in this encounter Visit Diagnoses Diagnosis Encounter for rehabilitation- Primary documented in this encounter Care Teams Machine Egg Washer Relationship Specialty Start Date End Date Cristian Garcia MD [address] [place] [address] [email or web address] PCP - General 07/26/17 07/04/20 Dawn Denise CNP [address] [place] [address] [email or web address] PCP - General Family Medicine 07/05/20 12/03/24 Brittney Covarrubias MD [address] [place] [address] [email or web address] PCP - General Family Medicine 12/04/24 Cristian Garcia MD [address] [place] [address] [email or web address] Historical LMR Provider 07/26/17 2 Stephen Evans MD [address] [place] [address] Historical LMR Provider 07/26/17 documented as of this encounter Additional Source Comments The information contained in this document represents components of the legal health record. It is not the complete legal health record.[facility]
--- OUTSIDE RECORDS SUMMARY | 2025-06-15 06:07 | XMS_ITS | Clinical Summary ---
Author Organization [facility] Address [address] [place] [address] Phone Care Team Providers Care Golf Course Designer Name Role Phone Brittney Covarrubias MD Primary Care Provider [phone] Allergies No known active allergies Medications aspirin [...] lab results have not been received from [facility], therefore will attempt to obtain. - Due [...] mellitus with other specified complication, unspecified whether terminal press operator insulin use Essential hypertension, malignant from Last 3 Months or Most Recently Relevant to Health Maintenance Results * (ABNORMAL) Comprehensive metabolic panel (12/02/2024 9:10 AM EST) SODIUM 140 133 - 146 mmol/L [facility] POTASSIUM 4.5 3.3 - 5.1 mmol/L [facility] CHLORIDE 103 96 - 108 mmol/L [facility] CO2 26 21 - 35 mmol/L [facility] BUN 22(H) 6 - 19 mg/dL [facility] CREATININE 1.00 0.5 - 1.5 mg/dL [facility] GLUCOSE 127(H) 70 - 99 mg/dL [facility] ALBUMIN 3.5(L) 3.9 - 4.8 g/dL [facility] TOTAL PROTEIN 6.0(L) 6.5 - 8.0 g/dL [facility] CALCIUM 9.2 8.4 - 10.3 mg/dL [facility] ALKALINE PHOSPHATASE 95 39 - 117 U/L [facility] TOTAL BILIRUBIN 0.6 0.0 - 1.2 mg/dL [facility] AST 14 0 - 37 U/L [facility] ALT 10 0 - 40 U/L [facility] GLOBULIN 2.5 1 - 4.8 g/dL [facility] EGFR 74 >59 mL/min/1.7 3m2 [facility] Comment:Estimated glomerular filtration rate calculated using the CKD-EPI refit equation. ANION GAP 16 10 - 20 mmol/L [facility] 12/02/2024 9:10 AM EST 12/02/2024 9:24 AM EST us Oral Miguel MD LAB BLOOD ORDERABLES Final Resul t [address] [address] from Last 3 Months or Most Recently [...] Nur Payer ID:Not on file Type:Medicare Address: [place] [id number] MEDICARE PART A & B MEDICARE HMO REPLACEMENT Advance Directives For more information, please contact: [phone] (9AM - 5PM Vera/[facility], Sunday-Sunday) * Full Code (Latest Code Status on File) Date Activated Date Inactivated Comments 03/16/2021 6:18 AM Question Answer Comments Code Status Confirmed With: Other (specify below ) Code Discussion Comments: Transcribed from order Care Teams Golf Course Designer Relationship Specialty Start Date End Date Brittney Covarrubias MD [address] [place] [address] [email or web address] PCP - General Family Medicine 12/04/24 Additional Source Comments The information contained in this document represents components of the legal health record. It is not the complete legal health record.[facility]
--- OUTSIDE RECORDS SUMMARY | 2025-06-15 06:07 | XMS_ITS | Encounter Summary ---
Author Organization [facility] Address [address] [facility] [address] [place] [address] Phone Care Team Providers Care Hand Alterations Seamstress Name Role Phone Cristian Garcia MD Primary Care Provider [phone] Cristian Garcia MD Unavailable [phone] Stephen Evans MD Unavailable Dawn Denise [facility] Primary Care Provider Brittney Covarrubias MD Primary Care Provider [phone] Encounter Details Date Type Department Care Team (Late st Contact Info) Description 07/28/2017 Ancillary [facility] [address] [place] [address] Stephen Evans MD [address] [place] [address] Social History Tobacco Use Types Packs/Day Years [...] on filedocumented in this encounter Care Teams Hand Alterations Seamstress Relationship Specialty Start Date End Date Cristian Garcia MD [address] [place] [address] [email or web address] PCP - General 07/26/17 07/04/20 Dawn Denise CNP [address] [place] [address] [email or web address] PCP - General Family Medicine 07/05/20 12/03/24 Brittney Covarrubias MD [address] [place] [address] [email or web address] PCP - General Family Medicine 12/04/24 Cristian Garcia MD [address] [place] [address] [email or web address] Historical LMR Provider 07/26/17 2 Stephen Evans MD [address] [place] [address] Historical LMR Provider 07/26/17 documented as of this encounter Additional Source Comments The information contained in this document represents components of the legal health record. It is not the complete legal health record.[facility]
--- OUTSIDE RECORDS SUMMARY | 2025-06-15 06:07 | XMS_ITS | Encounter Summary ---
Author Organization [facility] Address [address] [facility] [address] [place] [address] Phone Care Team Providers Care Casino Gaming Inspector Name Role Phone Cristian Garcia MD Primary Care Provider [phone] Cristian Garcia MD Unavailable [phone] Stephen Evans MD Unavailable [phone] Dawn Denies [facility] Primary Care Provider Brittney Covarrubias MD Primary Care Provider [phone] Reason for Referral * Physical Therapy (Elective) - Closed Specialty Diagnoses / Procedures Referred By Ivanna doty Referred To Contact Physical Therapy Diagnoses Encounter for rehabilitation Balance & Back Pain Procedures Evaluate & Treat Cristian Garcia MD Phone: tel: fax: mailto:[email or web address] [address] [place] [address] Phone: tel: Referral ID Status Reason Start Date Expiration Date Visits Re quested Visits Authorized [id number] Closed 07/26/2018 10/07/2018 88 88 Encounter Details Date Type Department Care Team (Latest Contact Info) Description 07/26/2018 Transcribe Orders [facility] [address] [place] [address] [phone] Cristian Garcia MD [address] [place] [address] [email or web address] Encounter for rehabilitation (Primary Dx) Social History [...] Date/Time Associated Diagnosis Comments AMB REFERRAL TO [facility] PHYSICAL THERAPY Routine 08/06/2018 10:48 AM EDT Encounter for rehabilitation documented in this encounter Results * Ambulatory referral to [facility] Physical Therapy (08/06/2018 10:48 AM EDT) Cristian Garcia MD AMB [facility] REFERRALS Final Result documented in this encounter Visit Diagnoses Diagnosis Encounter for rehabilitation- Primary documented in this encounter Care Teams Casino Gaming Inspector Relationship Specialty Start Date End Date Cristian Garcia MD [address] [place] [address] [email or web address] PCP - General 07/26/17 07/04/20 Dawn Denise CNP [address] [place] [address] [email or web address] PCP - General Family Medicine 07/05/20 12/03/24 Brittney Covarrubias MD [address] [place] [address] [email or web address] PCP - General Family Medicine 12/04/24 Cristian Garcia MD [address] [place] [address] [email or web address] Historical LMR Provider 07/26/17 2 Stephen Evans MD [address] [place] [address] Historical LMR Provider 07/26/17 documented as of this encounter Additional Source Comments The information contained in this document represents components of the legal health record. It is not the complete legal health record.[facility]
[2025-06-15 06:45] LABS: Anion Gap 12 (12-20); Blood Urea Nitrogen 19 mg/dL (9-16); Calcium 8.9 mg/dL (8.4-10.2); Carbon Dioxide 27 mmol/L (22-29); Chloride 105 mmol/L (96-108); Estimated Glomerular Filt Rate > 60; Potassium 3.8 mmol/L (3.3-5.1); Sodium 140 mmol/L (135-145)
[2025-06-15 06:53] LABS: Hematocrit 39.3 % (42.0-52.0); Hemoglobin 13.1 g/dl (14.0-18.0); Imm Gran Abs Auto 0.04 X10*3/uL (0.00-0.03); Imm Gran Pct Auto 0.6 % (0.0-0.4); Lymphocytes Absolute Auto 1.4 X10*3/uL (1.2-4.9); Mean Corpuscular HGB Conc 33.3 g/dl (31.0-36.0); Mean Corpuscular Hemoglobin 29.3 pg (27.0-33.0); Mean Corpuscular Volume 87.9 fL (80.0-98.0); NRBC Abs Auto 0.000 X10*3/uL (0.0-0.012); NRBC Pct Auto 0.0 /100WBC (0.0-0.2); Platelet Count 190 X10*3/uL (160-400); Red Blood Count 4.47 X10*6/uL (4.60-5.80); White Blood Count 6.9 X10*3/uL (4.8-10.8)
== END 2025-06-15 06:03 | disposition home or self-care (01) ==
LOC: HO.MMNH1L 06:02
PROVIDERS: Visit Provider Physician Assistant Medical
DX: I10 Essential (primary) hypertension (principal); N39.0 Urinary tract infection, site not specified; E78.5 Hyperlipidemia, unspecified
CPT/HCPCS: 36415; 80048; 85025

== ENCOUNTER 2025-06-22 05:47 | Outpatient (REF) | payer MEDICARE, SELFPAY ==
[2025-06-22 05:41] LABS: MANUAL DIFF FLAG NO
--- OUTSIDE RECORDS SUMMARY | 2025-06-22 05:53 | XMS_ITS | Encounter Summary ---
Author Organization [facility] Address [address] [place] [address] Phone Care Team Providers Care Roentgenology Teacher Name Role Phone Cristian Garcia MD Primary Care Provider Cristian Garcia MD Unavailable [phone] Stephen Evans MD Unavailable [phone] Dawn Denise [facility] Primary Care Provider Brittney Covarrubias MD Primary Care Provider [phone] Encounter Details Date Type Department Care Team (Latest Contact Info) Description 07/28/2017 Ancillary [facility] [address] [place] [address] [address]rd Floor, [address] [place], [place] [phone] Stephen Evans MD [address] [place], [place] [phone] Diagnosis unknown Social History Tobacco Use Types [...] unknown documented in this encounter Care Teams Roentgenology Teacher Relationship Specialty Start Date End Date Cristian Garcia MD [address] [place] [address] [email or web address] PCP - General 07/26/17 07/04/20 Dawn Denise CNP [address] [place] [address] [email or web address] PCP - General Family Medicine 07/05/20 12/03/24 Brittney Covarrubias MD [address] [place] [address] [email or web address] PCP - General Family Medicine 12/04/24 Cristian Garcia MD [address] [place] [address] [email or web address] Historical LMR Provider 07/26/17 2 Stephen Evans MD [facility] [place] [address] Historical LMR Provider 07/26/17 documented as of this encounter Additional Source Comments The information contained in this document represents components of the legal health record. It is not the complete legal health record.[facility]
--- OUTSIDE RECORDS SUMMARY | 2025-06-22 05:53 | XMS_ITS | Encounter Summary ---
Author Organization [facility] Address [address] [place] [address] Phone Care Team Providers Care Supervisor Wound Name Role Phone Cristian Garcia MD Primary Care Provider [phone] Cristian Garcia MD Unavailable [phone] Stephen Evans MD Unavailable [phone] Dawn Denise [facility] Primary Care Provider Brittney Covarrubias MD Primary Care Provider + [phone] Encounter Details Date Type Department Care Team (Latest Contact Info) Description 02/05/2018 Ancillary Orders [facility] [address] [place] [address] [address]rd Floor, [address] [place] [address] Stephen Evans MD [address] [place] [address] Aortic valve stenosis, etiology of cardiac valve [...] unspecified documented in this encounter Care Teams Supervisor Wound Relationship Specialty Start Date End Date Cristian Garcia MD [address] [place] [address] [email or web address] PCP - General 07/26/17 07/04/20 Dawn Denise CNP [address] [place] [phone] PCP - General Family Medicine 07/05/20 12/03/24 Brittney Covarrubias MD [address] [place] [address] PCP - General Family Medicine 12/04/24 Cristian Garcia MD [address] [place] [address] [email or web address] Historical LMR Provider 07/26/17 Stephen Redmond MD [address] [place] [address] Historical LMR Provider 07/26/17 documented as of this encounter Additional Source Comments The information contained in this document represents components of the legal health record. It is not the complete legal health record.[facility]
--- OUTSIDE RECORDS SUMMARY | 2025-06-22 05:53 | XMS_ITS | Clinical Summary ---
Author Organization [facility] Address [address] [place] [address] Phone Care Team Providers Care On Air Director Name Role Phone Brittney Covarrubias MD Primary Care Provider [phone] Allergies No known active allergies Medications aspirin [...] lab results have not been received from [facility], therefore will attempt to obtain. - Due [...] mellitus with other specified complication, unspecified whether chcf insulin use Essential hypertension, malignant from Last 3 Months or Most Recently Relevant to Health Maintenance Results * (ABNORMAL) Comprehensive metabolic panel (12/02/2024 9:10 AM EST) SODIUM 140 133 - 146 mmol/L [facility] POTASSIUM 4.5 3.3 - 5.1 mmol/L [facility] CHLORIDE 103 96 - 108 mmol/L [facility] CO2 26 21 - 35 mmol/L [facility] BUN 22(H) 6 - 19 mg/dL [facility] CREATININE 1.00 0.5 - 1.5 mg/dL [facility] GLUCOSE 127(H) 70 - 99 mg/dL [facility] ALBUMIN 3.5(L) 3.9 - 4.8 g/dL [facility] TOTAL PROTEIN 6.0(L) 6.5 - 8.0 g/dL [facility] CALCIUM 9.2 8.4 - 10.3 mg/dL [facility] ALKALINE PHOSPHATASE 95 39 - 117 U/L [facility] TOTAL BILIRUBIN 0.6 0.0 - 1.2 mg/dL [facility] AST 14 0 - 37 U/L [facility] ALT 10 0 - 40 U/L [facility] GLOBULIN 2.5 1 - 4.8 g/dL [facility] EGFR 74 >59 mL/min/1.7 3m2 [facility] Comment:Estimated glomerular filtration rate calculated using the CKD-EPI refit equation. ANION GAP 16 10 - 20 mmol/L [facility] 12/02/2024 9:10 AM EST 12/02/2024 9:24 AM EST us Oral Miguel MD LAB BLOOD ORDERABLES Final Resul t [address] [address] from Last 3 Months or Most Recently [...] Nur Payer ID:Not on file Type:Medicare Address: [place] [id number] MEDICARE PART A & B MEDICARE HMO REPLACEMENT Advance Directives For more information, please contact: [phone] (9AM - 5PM Vera/[facility], Sunday-Sunday) * Full Code (Latest Code Status on File) Date Activated Date Inactivated Comments 03/16/2021 6:18 AM Question Answer Comments Code Status Confirmed With: Other (specify below ) Code Discussion Comments: Transcribed from order Care Teams On Air Director Relationship Specialty Start Date End Date Brittney Covarrubias MD [address] [place] [address] [email or web address] PCP - General Family Medicine 12/04/24 Additional Source Comments The information contained in this document represents components of the legal health record. It is not the complete legal health record.[facility]
--- OUTSIDE RECORDS SUMMARY | 2025-06-22 05:53 | XMS_ITS | Encounter Summary ---
Author Organization [facility] Address [address] [facility] [address] [place] [address] Phone Care Team Providers Care Coat Cutter Name Role Phone Cristian Garcai MD Primary Care Provider [phone] Cristian Garcia MD Unavailable [phone] Stephen Evans MD Unavailable [phone] Dawn Denise [facility] Primary Care Provider Brittney Covarrubias MD Primary Care Provider [phone] Reason for Referral * Physical Therapy (Routine) - Closed Specialty Diagnoses / Procedures Referred By Ivanna doty Referred To Contact Physical Therapy Diagnoses Encounter for rehabilitation Balance & Back Pain Procedures Evalute & Treat Cristian Garcia MD Phone: tel: fax: mailto:[email or web address] [email or web address] [address] [place] [address] Phone: tel: Referral ID Status Reason Start Date Expiration Date Visits Re quested Visits Authorized [id number] Closed 01/14/2018 10/07/2018 99 99 Encounter Details Date Type Department Care Team (Latest Contact Info) Description 01/14/2018 Transcribe Orders [facility] [address] [place] [address] Cristian Garcia MD [address] [place] [address] [email or web address] Encounter for rehabilitation (Primary Dx) Social History [...] Date/Time Associated Diagnosis Comments AMB REFERRAL TO [facility] PHYSICAL THERAPY Routine 01/15/2018 3:14 PM EDT Encounter for rehabilitation documented in this encounter Results * Ambulatory referral to [facility] Physical Therapy (01/15/2018 3:14 PM EDT) Cristian Garcia MD AMB [facility] REFERRALS Final Result documented in this encounter Visit Diagnoses Diagnosis Encounter for rehabilitation- Primary documented in this encounter Care Teams Coat Cutter Relationship Specialty Start Date End Date Cristian Garcia MD [address] [place] [address] [email or web address] PCP - General 07/26/17 07/04/20 Dawn Denise CNP [address] [place] [address] PCP - General Family Medicine 07/05/20 12/03/24 Brittney Covarrubias MD [address] [place] [address] PCP - General Family Medicine 12/04/24 Cristian Garcia MD [address] [place] [address] [email or web address] Historical LMR Provider 07/26/17 2 Stephen Evans MD [address] [place] [address] Historical LMR Provider 07/26/17 documented as of this encounter Additional Source Comments The information contained in this document represents components of the legal health record. It is not the complete legal health record.[facility]
--- OUTSIDE RECORDS SUMMARY | 2025-06-22 05:53 | XMS_ITS | Encounter Summary ---
Author Organization [facility] Address [address] [facility] [address] [place] [address] Phone Care Team Providers Care Addressograph Operator Name Role Phone Cristian Garcia MD Primary Care Provider [phone] Cristian Garcia MD Unavailable [phone] Stephen Evans MD Unavailable [phone] Dawn Denise [facility] Primary Care Provider Brittney Covarrubias MD Primary Care Provider [phone] Reason for Referral * Physical Therapy (Routine) - Closed Specialty Diagnoses / Procedures Referred By Ivanna doty Referred To Contact Physical Therapy Diagnoses Encounter for rehabilitation Unsteady Gait Procedures Evaluate & Treat Mark Brandt MD Phone: tel: fax: mailto:[email or web address] [address] [place] [address] Phone: tel: Referral ID Status Reason Start Date Expiration Date Visits Re quested Visits Authorized [id number] Closed 03/21/2019 10/07/2019 99 99 Encounter Details Date Type Department Care Team (Latest Contact Info) Description 03/17/2019 Transcribe Orders [facility] [address] [place] [address] Mark Brandt MD [address] [place] [address] [email or web address] Encounter for rehabilitation (Primary Dx) Social [...] Date/Time Associated Diagnosis Comments AMB REFERRAL TO [facility] PHYSICAL THERAPY Routine 03/21/2019 1:11 PM EDT Encounter for rehabilitation documented in this encounter Results * Ambulatory referral to [facility] Physical Therapy (03/21/2019 1:11 PM EDT) us Mark Brandt MD AMB [facility] REFERRALS Final Resul t documented in this encounter Visit Diagnoses Diagnosis Encounter for rehabilitation- Primary documented in this encounter Care Teams Addressograph Operator Relationship Specialty Start Date End Date Cristian Garcia MD [address] [place] [address] PCP - General 07/26/17 07/04/20 Dawn Denise CNP [address] [place] [address] [email or web address] PCP - General Family Medicine 07/05/20 12/03/24 Brittney Covarrubias MD [address] [place] [address] [email or web address] PCP - General Family Medicine 12/04/24 Cristian Garcia MD [address] [place] [address] Historical LMR Provider 07/26/17 2 Stephen Evans MD [address] [place] [address] Historical LMR Provider 07/26/17 documented as of this encounter Additional Source Comments The information contained in this document represents components of the legal health record. It is not the complete legal health record.[facility]
--- OUTSIDE RECORDS SUMMARY | 2025-06-22 05:53 | XMS_ITS | Encounter Summary ---
Author Organization [facility] Address [address] [facility] [address] [place] [address] Phone Care Team Providers Care Dance Historian Name Role Phone Cristian Garcia MD Primary Care Provider [phone] Cristian Garcia MD Unavailable [phone] Stephen Evans MD Unavailable [phone] Dawn Denise [facility] Primary Care Provider Brittney Covarrubias MD Primary Care Provider [phone] Reason for Referral * Physical Therapy (Elective) - Closed Specialty Diagnoses / Procedures Referred By Ivanna doty Referred To Contact Physical Therapy Diagnoses Encounter for rehabilitation Balance & Back Pain Procedures Evaluate & Treat Cristian Garcia MD Phone: tel: fax: mailto:[email or web address] [address] [place] [address] Phone: tel: Referral ID Status Reason Start Date Expiration Date Visits Re quested Visits Authorized [id number] Closed 07/26/2018 10/07/2018 88 88 Encounter Details Date Type Department Care Team (Latest Contact Info) Description 07/26/2018 Transcribe Orders [facility] [address] [place] [address] [phone] Cristian Garcia MD [address] [place] [address] [email or web address] Encounter for rehabilitation (Primary Dx) Social History [...] Date/Time Associated Diagnosis Comments AMB REFERRAL TO [facility] PHYSICAL THERAPY Routine 08/06/2018 10:48 AM EDT Encounter for rehabilitation documented in this encounter Results * Ambulatory referral to [facility] Physical Therapy (08/06/2018 10:48 AM EDT) Cristian Garcia MD AMB [facility] REFERRALS Final Result documented in this encounter Visit Diagnoses Diagnosis Encounter for rehabilitation- Primary documented in this encounter Care Teams Dance Historian Relationship Specialty Start Date End Date Cristian Garcia MD [address] [place] [address] [email or web address] PCP - General 07/26/17 07/04/20 Dawn Denise CNP [address] [place] [address] PCP - General Family Medicine 07/05/20 12/03/24 Brittney Covarrubias MD [address] [place] [address] PCP - General Family Medicine 12/04/24 Cristian Garcia MD [address] [place] [address] [email or web address] Historical LMR Provider 07/26/17 2 Stephen Evans MD [address] [place] [address] Historical LMR Provider 07/26/17 documented as of this encounter Additional Source Comments The information contained in this document represents components of the legal health record. It is not the complete legal health record.[facility]
--- OUTSIDE RECORDS SUMMARY | 2025-06-22 05:53 | XMS_ITS | Encounter Summary ---
Author Organization [facility] Address [address] [facility] [address] [place] [address] Phone Care Team Providers Care Roving Tester Laboratory Name Role Phone Cristian Garcia MD Primary Care Provider [phone] Cristian Garcia MD Unavailable [phone] Stephen Evans MD Unavailable Dawn Denise [facility] Primary Care Provider Brittney Covarrubias MD Primary Care Provider [phone] Encounter Details Date Type Department Care Team (Late st Contact Info) Description 07/28/2017 Ancillary [facility] [address] [place] [address] Stephen Evans MD [address] [place] [address] Social History Tobacco Use Types Packs/Day Years [...] on filedocumented in this encounter Care Teams Roving Tester Laboratory Relationship Specialty Start Date End Date Cristian Garcia MD [address] [place] [address] [email or web address] PCP - General 07/26/17 07/04/20 Dawn Denise CNP [address] [place] [address] [email or web address] PCP - General Family Medicine 07/05/20 12/03/24 Brittney Covarrubias MD [address] [place] [address] [email or web address] PCP - General Family Medicine 12/04/24 Cristian Garcia MD [address] [place] [address] [email or web address] Historical LMR Provider 07/26/17 2 Stephen Evans MD [address] [place] [address] Historical LMR Provider 07/26/17 documented as of this encounter Additional Source Comments The information contained in this document represents components of the legal health record. It is not the complete legal health record.[facility]
--- OUTSIDE RECORDS SUMMARY | 2025-06-22 05:53 | XMS_ITS | Encounter Summary ---
Author Organization [facility] Address [address] [employer] [facility] [address] [place] [address] Phone Care Team Providers Care Boat Canvas Installer Name Role Phone Cristian Garcia MD Unavailable [phone] Stephen Evans MD Unavailable [phone] Dawn Denise CNP Primary Care Provider Brittney Covarrubias MD Primary Care Provider + [phone] Encounter Details Date Type Department Care Team (Late st Contact Info) Description 03/16/2021 Procedure Pass [facility] Cardiovascular And Interventional Radiology [address] [place] [address] Social History Tobacco Use Types Packs/Day Years [...] on filedocumented in this encounter Care Teams Boat Canvas Installer Relationship Specialty Start Date End Date Dawn Denise CNP [address] [place] [address] PCP - General Family Medicine 07/05/20 12/03/24 Brittney Covarrubias MD [address] [place] [address] [email or web address] PCP - General Family Medicine 12/04/24 Cristian Garcia MD [address] [place] [address] [email or web address] Historical LMR Provider 07/26/17 2 Stephen Evans MD [address] [place] [address] Historical LMR Provider 07/26/17 documented as of this encounter Additional Source Comments The information contained in this document represents components of the legal health record. It is not the complete legal health record.[facility]
--- OUTSIDE RECORDS SUMMARY | 2025-06-22 05:53 | XMS_ITS | Encounter Summary ---
Author Organization [facility] Address [address] [employer] [facility] [address] [place] [address] Phone Care Team Providers Care Worm Grower Name Role Phone Cristian Garcia MD Primary Care Provider [phone] Cristian Garcia MD Unavailable [phone] Stephen Evans MD Unavailable [phone] Dawn Denise [facility] Primary Care Provider Brittney Covarrubias MD Primary Care Provider [phone] Reason for Referral * Physical Therapy (Routine) - Closed Specialty Diagnoses / Procedures Referred By Ivanna doty Referred To Contact Physical Therapy Diagnoses Encounter for rehabilitation Radiculopathy Lumbar Region Procedures Treat System, Provider Not In, [facility] [employer] [address] [address] Phone: tel: Referral ID Status Reason Start Date Expiration Date Visits Re quested Visits Authorized [id number] Closed 08/06/2017 10/07/2017 99 99 Encounter Details Date Type Department Care Team (Latest Contact Info) Description 08/17/2017 Transcribe Orders [facility] Rehabilitation Services [address] [place] [address] System, Provider Not In, [employer] [address] [address] Encounter for rehabilitation (Primary Dx) Social History [...] Diagnoses Orde r Schedule Ambulatory referral to [facility] Physical Therapy Outpatient Referral Routine Encounter for rehabilitation Ordered: 08/17/2017 documented as of this encounter Visit Diagnoses Diagnosis Encounter for rehabilitation- Primary documented in this encounter Care Teams Worm Grower Relationship Specialty Start Date End Date Cristian Garcia MD [address] [place] [address] [email or web address] PCP - General 07/26/17 07/04/20 Dawn Denise CNP [address] [place] [address] [email or web address] PCP - General Family Medicine 07/05/20 12/03/24 Brittney Covarrubias MD [address] [place] [address] [email or web address] PCP - General Family Medicine 12/04/24 Cristian Garcia MD [address] [place] [address] [email or web address] Historical LMR Provider 07/26/17 2 Stephen Evans MD [address] [place] [address] Historical LMR Provider 07/26/17 documented as of this encounter Additional Source Comments The information contained in this document represents components of the legal health record. It is not the complete legal health record.[facility]
[2025-06-22 06:22] LABS: Hematocrit 36.6 % (42.0-52.0); Hemoglobin 12.4 g/dl (14.0-18.0); Imm Gran Abs Auto 0.04 X10*3/uL (0.00-0.03); Imm Gran Pct Auto 0.6 % (0.0-0.4); Lymphocytes Absolute Auto 1.2 X10*3/uL (1.2-4.9); Mean Corpuscular HGB Conc 33.9 g/dl (31.0-36.0); Mean Corpuscular Hemoglobin 29.4 pg (27.0-33.0); Mean Corpuscular Volume 86.7 fL (80.0-98.0); NRBC Abs Auto 0.000 X10*3/uL (0.0-0.012); NRBC Pct Auto 0.0 /100WBC (0.0-0.2); Platelet Count 171 X10*3/uL (160-400); Red Blood Count 4.22 X10*6/uL (4.60-5.80); White Blood Count 6.2 X10*3/uL (4.8-10.8)
[2025-06-22 06:51] LABS: Anion Gap 12 (12-20); Blood Urea Nitrogen 20 mg/dL (9-16); Calcium 8.9 mg/dL (8.4-10.2); Carbon Dioxide 26 mmol/L (22-29); Chloride 104 mmol/L (96-108); Estimated Glomerular Filt Rate > 60; Potassium 3.9 mmol/L (3.3-5.1); Sodium 138 mmol/L (135-145)
== END 2025-06-22 05:48 | disposition home or self-care (01) ==
LOC: HO.MMNH1L 05:47
PROVIDERS: Visit Provider Physician Assistant Medical
DX: I10 Essential (primary) hypertension (principal); N39.0 Urinary tract infection, site not specified; E78.5 Hyperlipidemia, unspecified
CPT/HCPCS: 36415; 80048; 85025

== ENCOUNTER 2025-06-29 07:15 | Outpatient (REF) | payer MEDICARE, SELFPAY ==
[2025-06-29 06:41] LABS: MANUAL DIFF FLAG NO
--- OUTSIDE RECORDS SUMMARY | 2025-06-29 07:18 | XMS_ITS | Encounter Summary ---
Author Organization [facility] Address [address] [facility] [address] [place] [address] Phone Care Team Providers Care Oracle Scm Consultant Name Role Phone Cristian Garcia MD Primary Care Provider [phone] Cristian Garcia MD Unavailable [phone] Stephen Evans MD Unavailable [phone] Dawn Denise [facility] Primary Care Provider Brittney Covarrubias MD Primary Care Provider [phone] Reason for Referral * Physical Therapy (Routine) - Closed Specialty Diagnoses / Procedures Referred By Ivanna doty Referred To Contact Physical Therapy Diagnoses Encounter for rehabilitation Unsteady Gait Procedures Evaluate & Treat Mark Brandt MD Phone: tel: fax: [email or web address] [facility] [address] [place] [address] Phone: tel: Referral ID Status Reason Start Date Expiration Date Visits Re quested Visits Authorized [id number] Closed 03/21/2019 10/07/2019 99 99 Encounter Details Date Type Department Care Team (Latest Contact Info) Description 03/17/2019 Transcribe Orders [facility] [address] [place] [address] Mark Brandt MD [address] [place] [address] [email or web address] Encounter for rehabilitation (Primary Dx) Social [...] Comments AMB REFERRAL TO [facility] PHYSICAL THERAPY Routine 03/21/2019 1:11 PM EDT Encounter for rehabilitation documented in this encounter Results * Ambulatory referral to [facility] Physical Therapy (03/21/2019 1:11 PM EDT) us Mark Brandt MD AMB [facility] REFERRALS Final Resul t documented in this encounter Visit Diagnoses Diagnosis Encounter for rehabilitation- Primary documented in this encounter Care Teams Oracle Scm Consultant Relationship Specialty Start Date End Date Cristian Garcia MD [address] [place] [phone] [email or web address] PCP - General 07/26/17 07/04/20 Dawn Denise CNP [address] [place] [address] PCP - General Family Medicine 07/05/20 12/03/24 Brittney Covarrubias MD [address] [place] [address] PCP - General Family Medicine 12/04/24 Cristian Garcia MD [address] [place] [address] [email or web address] Historical LMR Provider 07/26/17 2 Stephen Evans MD [address] [place] [address] Historical LMR Provider 07/26/17 documented as of this encounter Additional Source Comments The information contained in this document represents components of the legal health record. It is not the complete legal health record.[facility]
--- OUTSIDE RECORDS SUMMARY | 2025-06-29 07:18 | XMS_ITS | Encounter Summary ---
Author Organization [facility] Address [address] [place] [address] Phone Care Team Providers Care Automatic I Threading Machine Feeder Name Role Phone Cristian Garcia MD Primary Care Provider [phone] Cristian Garcia MD Unavailable [phone] Stephen Evans MD Unavailable [phone] Dawn Denise [facility] Primary Care Provider Brittney Covarrubias MD Primary Care Provider + [phone] Encounter Details Date Type Department Care Team (Latest Contact Info) Description 02/05/2018 Ancillary [facility] [address] [place] [address] 3rd Floor, [address] [place] [address] Stephen Evans MD [address] [place] [address] Aortic valve stenosis, etiology of cardiac valve [...] unspecified documented in this encounter Care Teams Automatic I Threading Machine Feeder Relationship Specialty Start Date End Date Cristian Garcia MD [address] [place] [address] [email or web address] PCP - General 07/26/17 07/04/20 Dawn Denise CNP [address] [place] [address] PCP - General Family Medicine 07/05/20 12/03/24 Brittney Covarrubias MD [address] [place] [address] PCP - General Family Medicine 12/04/24 Cristian Garcia MD [address] [place] [address] [email or web address] Historical LMR Provider 07/26/17 Stephen [place] MD [address] [place] [address] Historical LMR Provider 07/26/17 documented as of this encounter Additional Source Comments The information contained in this document represents components of the legal health record. It is not the complete legal health record.[facility]
--- OUTSIDE RECORDS SUMMARY | 2025-06-29 07:18 | XMS_ITS | Encounter Summary ---
Author Organization [facility] Address [address] [employer] [facility] [address] [place] [address] Phone Care Team Providers Care Fountain Brush Assembler Name Role Phone Cristian Garcia MD Primary Care Provider [phone] Cristian Garcia MD Unavailable [phone] Stephen Evans MD Unavailable [phone] Dawn Denise [facility] Primary Care Provider Brittney Covarrubias MD Primary Care Provider [phone] Reason for Referral * Physical Therapy (Routine) - Closed Specialty Diagnoses / Procedures Referred By Ivanna doty Referred To Contact Physical Therapy Diagnoses Encounter for rehabilitation Radiculopathy Lumbar Region Procedures Treat System, Provider Not In, [facility] [employer] [address] [address] Phone: tel: Referral ID Status Reason Start Date Expiration Date Visits Re quested Visits Authorized [id number] Closed 08/06/2017 10/07/2017 99 99 Encounter Details Date Type Department Care Team (Latest Contact Info) Description 08/17/2017 Transcribe Orders [facility] Rehabilitation Services 4 [place] [address] System, Provider Not In, [employer] [address] [address] Encounter for rehabilitation (Primary Dx) Social History [...] Diagnoses Orde r Schedule Ambulatory referral to [facility] Physical Therapy Outpatient Referral Routine Encounter for rehabilitation Ordered: 08/17/2017 documented as of this encounter Visit Diagnoses Diagnosis Encounter for rehabilitation- Primary documented in this encounter Care Teams Fountain Brush Assembler Relationship Specialty Start Date End Date Cristian Garcia MD [address] [place] [address] [email or web address] PCP - General 07/26/17 07/04/20 Dawn Denise CNP [address] [place] [address] PCP - General Family Medicine 07/05/20 12/03/24 Brittney Covarrubias MD [address] [place] [address] PCP - General Family Medicine 12/04/24 Cristian Garcia MD [address] [place] [address] [email or web address] Historical LMR Provider 07/26/17 2 Stephen Evans MD [address] [place] [address] Historical LMR Provider 07/26/17 documented as of this encounter Additional Source Comments The information contained in this document represents components of the legal health record. It is not the complete legal health record.[facility]
--- OUTSIDE RECORDS SUMMARY | 2025-06-29 07:18 | XMS_ITS | Encounter Summary ---
Author Organization [facility] Address [address] [employer] [facility] [address] [place] [address] Phone Care Team Providers Care Hospital Admissions Clerk Name Role Phone Cristian Garcia MD Primary Care Provider [phone] Cristian Garcia MD Unavailable [phone] Stephen Evans MD Unavailable [phone] Dawn Denise [facility] Primary Care Provider Brittney Covarrubias MD Primary Care Provider [phone] Reason for Referral * Physical Therapy (Elective) - Closed Specialty Diagnoses / Procedures Referred By Ivanna doty Referred To Contact Physical Therapy Diagnoses Encounter for rehabilitation Balance & Back Pain Procedures Evaluate & Treat Cristian Garcia MD Phone: tel: fax: mailto:[email or web address] [address] [place] [address] Phone: tel: Referral ID Status Reason Start Date Expiration Date Visits Re quested Visits Authorized [id number] Closed 07/26/2018 10/07/2018 88 88 Encounter Details Date Type Department Care Team (Latest Contact Info) Description 07/26/2018 Transcribe Orders [facility] Rehabilitation Services [address] [place] [address] [phone] Cristian Garcia MD [address] [place] [address] [email or web address] Encounter for rehabilitation (Primary Dx) Social History [...] Associated Diagnosis Comments AMB REFERRAL TO [facility] PHYSICAL THERAPY Routine 08/06/2018 10:48 AM EDT Encounter for rehabilitation documented in this encounter Results * Ambulatory referral to [facility] Physical Therapy (08/06/2018 10:48 AM EDT) Cristian Garcia MD AMB [facility] REFERRALS Final Result documented in this encounter Visit Diagnoses Diagnosis Encounter for rehabilitation- Primary documented in this encounter Care Teams Hospital Admissions Clerk Relationship Specialty Start Date End Date Cristian Garcia MD [address] [place] [address] [email or web address] PCP - General 07/26/17 07/04/20 Dawn Denise CNP [address] [place] [address] PCP - General Family Medicine 07/05/20 12/03/24 Brittney Covarrubias MD [address] [place] [address] PCP - General Family Medicine 12/04/24 Cristian Garcia MD [address] [place] [address] [email or web address] Historical LMR Provider 07/26/17 2 Stephen Evans MD [address] [place] [address] Historical LMR Provider 07/26/17 documented as of this encounter Additional Source Comments The information contained in this document represents components of the legal health record. It is not the complete legal health record.[facility]
--- OUTSIDE RECORDS SUMMARY | 2025-06-29 07:18 | XMS_ITS | Encounter Summary ---
Author Organization [facility] Address [address] [place] [address] Phone Care Team Providers Care Mill Attendant Name Role Phone Cristian Garcia MD Primary Care Provider Cristian Garcia MD Unavailable [phone] Stephen Evans MD Unavailable [phone] Dawn Denise [facility] Primary Care Provider Brittney Covarrubias MD Primary Care Provider [phone] Encounter Details Date Type Department Care Team (Latest Contact Info) Description 07/28/2017 Ancillary [facility] [address] [place] [address] 3rd Floor, [address] [place] [address] Stephen Evans MD [address] [place] [address] Diagnosis unknown Social History Tobacco Use Types [...] unknown documented in this encounter Care Teams Mill Attendant Relationship Specialty Start Date End Date Cristian Garcia MD [address] [place] [address] [email or web address] PCP - General 07/26/17 07/04/20 Dawn Denise CNP [address] [place] [address] [email or web address] PCP - General Family Medicine 07/05/20 12/03/24 Brittney Covarrubias MD [address] [place] [address] [email or web address] PCP - General Family Medicine 12/04/24 Cristian Garcia MD [address] [place] [address] [email or web address] Historical LMR Provider 07/26/17 2 Stephen Evans MD [facility] [place] [address] Historical LMR Provider 07/26/17 documented as of this encounter Additional Source Comments The information contained in this document represents components of the legal health record. It is not the complete legal health record.[facility]
--- OUTSIDE RECORDS SUMMARY | 2025-06-29 07:18 | XMS_ITS | Encounter Summary ---
Author Organization [facility] Address [address] [employer] [place] [address] [place] [address] Phone Care Team Providers Care Dianeticist Name Role Phone Cristian Garcia MD Primary Care Provider [phone] Cristian Garcia MD Unavailable [phone] Stephen Evans MD Unavailable [phone] Dawn Denise [facility] Primary Care Provider Brittney Covarrubias MD Primary Care Provider [phone] Reason for Referral * Physical Therapy (Routine) - Closed Specialty Diagnoses / Procedures Referred By Ivanna doty Referred To Contact Physical Therapy Diagnoses Encounter for rehabilitation Balance & Back Pain Procedures Evalute & Treat Cristian Garcia MD Phone: tel: fax: mailto:[email or web address] [address] [place] [address] Phone: tel: Referral ID Status Reason Start Date Expiration Date Visits Re quested Visits Authorized [id number] Closed 01/14/2018 10/07/2018 99 99 Encounter Details Date Type Department Care Team (Latest Contact Info) Description 01/14/2018 Transcribe Orders [facility] Rehabilitation Services [address] [place] [address] Cristian Garcia MD [address] [place] [address] [email or web address] Encounter for rehabilitation (Primary Dx) Social History [...] Date/Time Associated Diagnosis Comments AMB REFERRAL TO [facility] PHYSICAL THERAPY Routine 01/15/2018 3:14 PM EDT Encounter for rehabilitation documented in this encounter Results * Ambulatory referral to [facility] Physical Therapy (01/15/2018 3:14 PM EDT) Cristian Garcia MD AMB [facility] REFERRALS Final Result documented in this encounter Visit Diagnoses Diagnosis Encounter for rehabilitation- Primary documented in this encounter Care Teams Dianeticist Relationship Specialty Start Date End Date Cristian Garcia MD [address] [place] [address] [email or web address] PCP - General 07/26/17 07/04/20 Dawn Denise CNP [address] [place] [address] [email or web address] PCP - General Family Medicine 07/05/20 12/03/24 Brittney Covarrubias MD [address] [place] [address] [email or web address] PCP - General Family Medicine 12/04/24 Cristian Garcia MD [address] [place] [address] [email or web address] Historical LMR Provider 07/26/17 2 Stephen vEans MD [address] [place] [address] Historical LMR Provider 07/26/17 documented as of this encounter Additional Source Comments The information contained in this document represents components of the legal health record. It is not the complete legal health record.[facility]
--- OUTSIDE RECORDS SUMMARY | 2025-06-29 07:18 | XMS_ITS | Encounter Summary ---
Author Organization [facility] Address [address] [employer] [facility] [address] [place] [address] Phone Care Team Providers Care Brazing Machine Operator Helper Name Role Phone Cristian Garcia MD Primary Care Provider Cristian Garcia MD Unavailable [phone] Stephen Evans MD Unavailable [phone] Dawn Denise [facility] Primary Care Provider Brittney Covarrubias MD Primary Care Provider [phone] Encounter Details Date Type Department Care Team (Late st Contact Info) Description 07/28/2017 Ancillary [facility] [address] [place] [id number] Stephen Evans MD [address] [place] [address] Social History Tobacco Use Types Packs/Day Years [...] on filedocumented in this encounter Care Teams Brazing Machine Operator Helper Relationship Specialty Start Date End Date Cristian Garcia MD [address] [place] [address] [email or web address] PCP - General 07/26/17 07/04/20 Dawn Denise CNP [address] [place] [address] [email or web address] PCP - General Family Medicine 07/05/20 12/03/24 Brittney Covarrubias MD [address] [place] [address] [email or web address] PCP - General Family Medicine 12/04/24 Cristian Garcia MD [address] [place] [address] [email or web address] Historical LMR Provider 07/26/17 2 Stephen Evans MD [address] [place] [address] Historical LMR Provider 07/26/17 documented as of this encounter Additional Source Comments The information contained in this document represents components of the legal health record. It is not the complete legal health record.[facility]
--- OUTSIDE RECORDS SUMMARY | 2025-06-29 07:18 | XMS_ITS | Encounter Summary ---
Author Organization [facility] Address [address] [employer] [facility] [address] [place] [address] Phone Care Team Providers Care Electronic Field Service Engineer Name Role Phone Cristian Garcia MD Unavailable [phone] Stephen Evans MD Unavailable [phone] Dawn Denise CNP Primary Care Provider Brittney Covarrubias MD Primary Care Provider + [phone] Encounter Details Date Type Department Care Team (Late st Contact Info) Description 03/16/2021 Procedure Pass [facility] Cardiovascular And Interventional Radiology [address] [place] [address] Social History Tobacco Use Types Packs/Day Years [...] on filedocumented in this encounter Care Teams Electronic Field Service Engineer Relationship Specialty Start Date End Date Dawn Denise CNP [address] [place] [address] PCP - General Family Medicine 07/05/20 12/03/24 Brittney Covarrubias MD [address] [place] [address] [email or web address] PCP - General Family Medicine 12/04/24 Cristian Garcia MD [address] [place] [address] [email or web address] Historical LMR Provider 07/26/17 2 Stephen Evans MD [address] [place] [address] Historical LMR Provider 07/26/17 documented as of this encounter Additional Source Comments The information contained in this document represents components of the legal health record. It is not the complete legal health record.[facility]
--- OUTSIDE RECORDS SUMMARY | 2025-06-29 07:18 | XMS_ITS | Clinical Summary ---
Author Organization [facility] Address [address] [place] [address] Phone Care Team Providers Care Ground Water Pump Installer Name Role Phone Brittney Covarrubias MD Primary Care Provider [phone] Allergies No known active allergies Medications aspirin [...] lab results have not been received from [place] [facility], therefore will attempt to obtain. - [...] mellitus with other specified complication, unspecified whether alf insulin use Essential hypertension, malignant from Last 3 Months or Most Recently Relevant to Health Maintenance Results * (ABNORMAL) Comprehensive metabolic panel (12/02/2024 9:10 AM EST) SODIUM 140 133 - 146 mmol/L [facility] POTASSIUM 4.5 3.3 - 5.1 mmol/L [facility] CHLORIDE 103 96 - 108 mmol/L [facility] CO2 26 21 - 35 mmol/L [facility] BUN 22(H) 6 - 19 mg/dL [facility] CREATININE 1.00 0.5 - 1.5 mg/dL [facility] GLUCOSE 127(H) 70 - 99 mg/dL [facility] ALBUMIN 3.5(L) 3.9 - 4.8 g/dL [facility] TOTAL PROTEIN 6.0(L) 6.5 - 8.0 g/dL [facility] CALCIUM 9.2 8.4 - 10.3 mg/dL [facility] ALKALINE PHOSPHATASE 95 39 - 117 U/L [facility] TOTAL BILIRUBIN 0.6 0.0 - 1.2 mg/dL [facility] AST 14 0 - 37 U/L [facility] ALT 10 0 - 40 U/L [facility] GLOBULIN 2.5 1 - 4.8 g/dL [facility] EGFR 74 >59 mL/min/1.7 3m2 [facility] Comment:Estimated glomerular filtration rate calculated using the CKD-EPI refit equation. ANION GAP 16 10 - 20 mmol/L [facility] 12/02/2024 9:10 AM EST 12/02/2024 9:24 AM EST us Oral Miguel MD LAB BLOOD ORDERABLES Final Resul t [address] [id number] from Last 3 Months or Most Recently [...] Nur Payer ID:Not on file Type:Medicare Address: [place] [id number] MEDICARE PART A & B MEDICARE HMO REPLACEMENT Advance Directives For more information, please contact: [phone] (9AM - 5PM [facility], Sunday-Sunday) * Full Code (Latest Code Status on File) Date Activated Date Inactivated Comments 03/16/2021 6:18 AM Question Answer Comments Code Status Confirmed With: Other (specify below ) Code Discussion Comments: Transcribed from order Care Teams Ground Water Pump Installer Relationship Specialty Start Date End Date Brittney Covarrubias MD [address] [place] [id number] [email or web address] PCP - General Family Medicine 12/04/24 Additional Source Comments The information contained in this document represents components of the legal health record. It is not the complete legal health record.[facility]
[2025-06-29 07:22] LABS: Hematocrit 34.6 % (42.0-52.0); Hemoglobin 11.8 g/dl (14.0-18.0); Imm Gran Abs Auto 0.07 X10*3/uL (0.00-0.03); Imm Gran Pct Auto 1.1 % (0.0-0.4); Lymphocytes Absolute Auto 1.3 X10*3/uL (1.2-4.9); Mean Corpuscular HGB Conc 34.1 g/dl (31.0-36.0); Mean Corpuscular Hemoglobin 29.4 pg (27.0-33.0); Mean Corpuscular Volume 86.1 fL (80.0-98.0); NRBC Abs Auto 0.000 X10*3/uL (0.0-0.012); NRBC Pct Auto 0.0 /100WBC (0.0-0.2); Platelet Count 186 X10*3/uL (160-400); Red Blood Count 4.02 X10*6/uL (4.60-5.80); White Blood Count 6.4 X10*3/uL (4.8-10.8)
[2025-06-29 07:34] LABS: Anion Gap 11 (12-20); Blood Urea Nitrogen 20 mg/dL (9-16); Calcium 8.8 mg/dL (8.4-10.2); Carbon Dioxide 26 mmol/L (22-29); Chloride 105 mmol/L (96-108); Estimated Glomerular Filt Rate > 60; Potassium 3.8 mmol/L (3.3-5.1); Sodium 138 mmol/L (135-145)
== END 2025-06-29 07:16 | disposition home or self-care (01) ==
LOC: HO.MMNH1L 07:15
PROVIDERS: Visit Provider Physician Assistant Medical
DX: I10 Essential (primary) hypertension (principal); E78.5 Hyperlipidemia, unspecified; N39.0 Urinary tract infection, site not specified
CPT/HCPCS: 36415; 80048; 85025